=== PATIENT | female | born 1935 | race Caucasian/White ===

== ENCOUNTER → 2018-03-12 09:56 | Outpatient (CLI) | payer MEDICARE, OTHER, SELFPAY ==
--- NOTE | 2018-03-12 | DI.MG.S_ITS ---
BILATERAL DIGITAL SCREENING MAMMOGRAM 3D/2D WITH CAD: 03/12/2018 CLINICAL: Routine screening. Comparison is made to exams dated: 12/24/2016 mammogram - [facility], 12/27/2013 mammogram, and 10/01/2012 mammogram - [facility]. The tissue of both breasts is extremely dense, which lowers the sensitivity of mammography. Current study was also evaluated with a Computer Aided Detection (CAD) system. No significant masses, calcifications, or other findings are seen in either breast. There has been no significant interval change. IMPRESSION: NEGATIVE There is no mammographic evidence of malignancy. A 1 year screening mammogram is recommended. This exam was interpreted at Station ID: [id number]. NOTE: For mammograms, a report in lay terms will be sent to the patient. Approximately 15% of breast malignancies will not be visualized mammographically. In the management of a palpable breast mass, a negative mammogram must not discourage biopsy of a clinically suspicious lesion. Electronically Signed By: Sam victoria/omaira:03/12/2018 11:04:40 letter sent: Normal Exam ACR BI-RADS Category 1: Negative 3341F
== END ==
PROVIDERS: PCP Internal Medicine; Visit Provider Internal Medicine
DX: Z12.31 Encounter for screening mammogram for malignant neoplasm of breast (principal); M81.0 Age-related osteoporosis without current pathological fracture
CPT/HCPCS: 77063; 77067; 77080

== ENCOUNTER → 2019-01-25 14:04 | Outpatient (CLI) | payer MEDICARE, OTHER, SELFPAY ==
--- NOTE | 2019-01-25 | DI.RAD.S_ITS ---
PROCEDURE: XR LUMBAR SPINE 2-3V INDICATIONS: Low back pain TECHNIQUE: A set of 3 views of the lumbar spine were acquired. COMPARISON: [facility], CT, ABDOMEN/PELVIS WITH CONTRAST, 05/23/2017, 11:42. FINDINGS: Bones: 5 col-[id number] vertebrae are present. There is slight levoscoliotic bony alignment. No vertebral body compression fractures. The degenerative disc disease and facet osteoarthritis along the lumbosacral spine is most prominent at L3-4 and L4-5, as was the case during prior CT scanning 05/23/17. Surgical clips again noted medial left upper quadrant. Areas of peripherally calcified centrally lucent rectangular ovoid and rounded radiodensities at the left upper quadrant are again seen, presumably a manifestation of fat necrosis. No suspicious bony lesions. Soft tissues: Overlying bowel gas pattern is normal. No suspicious soft tissue calcifications. IMPRESSION: Degenerative disc disease is unchanged from prior CT scanning 05/23/17 and no acute or subacute compression fracture is found. As noted, the degenerative changes over the middle and lower thirds of the lumbosacral spine are moderate in severity and do not appear to have worsened. If unusual symptomatology persists followup by MR scanning could be obtained. Dictated by: Tramaine Frost M.D. on 01/25/2019 at 15:51 Approved by: Tramaine Frost M.D. on 01/25/2019 at 15:53
== END ==
PROVIDERS: PCP Internal Medicine; Visit Provider Student in an Organized Health Care Education/Training Program
DX: M54.5 Low back pain (principal); M51.36 Other intervertebral disc degeneration, lumbar region; M47.817 Spondylosis without myelopathy or radiculopathy, lumbosacral region
CPT/HCPCS: 72100

== ENCOUNTER → 2019-03-16 10:21 | Outpatient (CLI) | payer MEDICARE, OTHER, SELFPAY ==
--- NOTE | 2019-03-16 | DI.MG.S_ITS ---
BILATERAL DIGITAL SCREENING MAMMOGRAM 3D/2D WITH CAD: 03/16/2019 CLINICAL: Routine screening. Comparison is made to exams dated: 03/12/2018 mammogram, 12/24/2016 mammogram - [facility], and 12/27/2013 mammogram - [facility]. The tissue of both breasts is extremely dense, which lowers the sensitivity of mammography. Current study was also evaluated with a Computer Aided Detection (CAD) system. There are benign calcifications in both breasts. No significant masses, calcifications, or other findings are seen in either breast. There has been no significant interval change. IMPRESSION: There is no mammographic evidence of malignancy. A 1 year screening mammogram is recommended. This exam was interpreted at Station ID: [id number]. NOTE: For mammograms, a report in lay terms will be sent to the patient. Approximately 15% of breast malignancies will not be visualized mammographically. In the management of a palpable breast mass, a negative mammogram must not discourage biopsy of a clinically suspicious lesion. Electronically Signed By: Emmett barraza/omaira:03/16/2019 11:06:32 letter sent: Normal Exam ACR BI-RADS Category 2: Benign Finding(s) 3342F
== END ==
PROVIDERS: PCP Internal Medicine; Visit Provider Internal Medicine
DX: Z12.31 Encounter for screening mammogram for malignant neoplasm of breast (principal)
CPT/HCPCS: 77063; 77067

== ENCOUNTER → 2020-04-20 10:21 | Outpatient (CLI) | payer MEDICARE, OTHER, SELFPAY ==
[2020-04-20 12:04] LABS: Aspartate Aminotransferase 31 IU/L (14-36); BUN Creatinine Ratio 28.4 (6-22); Blood Urea Nitrogen 25 mg/dL (7-17); Calcium 9.7 mg/dL (8.4-10.2); Carbon Dioxide 26 mmol/L (22-32); Chloride 104 mmol/L (98-107); Cholesterol 148 mg/dL (140-199); Estimated Glomerular Filt Rate > 60.0 mL/min (>60); Glucose 103 mg/dL (80-110); HDL Cholesterol 59 mg/dL (40-60); HEMOLYSIS < 15 (0-50); LDL Cholesterol Calculated 57 mg/dL (<100); Potassium 4.8 mmol/L (3.4-5.1); Sodium 138 mmol/L (137-145); Triglycerides 158 mg/dL (35-150)
== END ==
PROVIDERS: PCP Internal Medicine; Referring Provider Internal Medicine; Visit Provider Internal Medicine
DX: I10 Essential (primary) hypertension (principal); E78.2 Mixed hyperlipidemia
CPT/HCPCS: 36415; 80048; 80061; 84450

== ENCOUNTER → 2020-04-27 16:11 | Outpatient (CLI) | payer MEDICARE, OTHER, SELFPAY ==
--- NOTE | 2020-04-27 | DI.MG.S_ITS ---
BILATERAL DIGITAL SCREENING MAMMOGRAM 3D/2D WITH CAD: 04/27/2020 CLINICAL: Routine screening. Comparison is made to exams dated: 03/16/2019 mammogram, 03/12/2018 mammogram, and 12/24/2016 mammogram - [facility]. The tissue of both breasts is extremely dense, which lowers the sensitivity of mammography. Current study was also evaluated with a Computer Aided Detection (CAD) system. There are benign calcifications in both breasts. No significant masses, calcifications, or other findings are seen in either breast. There has been no significant interval change. IMPRESSION: There is no mammographic evidence of malignancy. A 1 year screening mammogram is recommended. This exam was interpreted at Station ID: [id number]. NOTE: For mammograms, a report in lay terms will be sent to the patient. Approximately 15% of breast malignancies will not be visualized mammographically. In the management of a palpable breast mass, a negative mammogram must not discourage biopsy of a clinically suspicious lesion. Electronically Signed By: Emmett barraza/omaira:04/27/2020 17:41:11 letter sent: Normal Exam ACR BI-RADS Category 2: Benign Finding(s) 3342F
== END ==
PROVIDERS: PCP Internal Medicine; Referring Provider Internal Medicine; Visit Provider Internal Medicine
DX: Z12.31 Encounter for screening mammogram for malignant neoplasm of breast (principal)
CPT/HCPCS: 77063; 77067

== ENCOUNTER → 2020-05-02 13:30 | Oncology outpatient (ONC) | payer MEDICARE, OTHER, SELFPAY ==
[2019-02-16] MEDS: ZOLEDRONIC ACID 5 MG in SODIUM CHLORIDE 0.9% 100 ML 318.75 ML IV (15:11)
[2019-02-16 15:24] VITALS: BP 113/56; PULSE 67; RESP 16; TEMP 36.5; O2SAT 95
[2020-05-02 13:48] VITALS: BP 132/67; PULSE 60; RESP 16; TEMP 36.7; O2SAT 96
[2020-05-02] MEDS: ZOLEDRONIC ACID 5 MG in SODIUM CHLORIDE 0.9% 100 ML 318.75 ML IV (13:52)
== END ==
PROVIDERS: PCP Internal Medicine; Visit Provider Internal Medicine
DX: M81.0 Age-related osteoporosis without current pathological fracture (principal)
CPT/HCPCS: 96365; 96374; J3489

== ENCOUNTER → 2020-05-13 09:10 | Outpatient (CLI) | payer MEDICARE, OTHER, SELFPAY | PROVIDERS: PCP Internal Medicine; Visit Provider Physician Assistant | DX: R30.0 Dysuria (principal) | CPT/HCPCS: 87086 ==

== ENCOUNTER → 2021-05-08 12:35 | Outpatient (CLI) | payer MEDICARE, OTHER, SELFPAY ==
--- NOTE | 2021-05-08 | DI.MG.S_ITS ---
BILATERAL DIGITAL SCREENING MAMMOGRAM 3D/2D WITH CAD: 05/08/2021 CLINICAL: Routine screening. Comparison is made to exams dated: 04/27/2020 mammogram, 03/16/2019 mammogram, and 03/12/2018 mammogram - [facility]. The tissue of both breasts is extremely dense, which lowers the sensitivity of mammography. Current study was also evaluated with a Computer Aided Detection (CAD) system. There are benign calcifications in both breasts. There also are benign vascular calcifications in both breasts. Additionally, there are benign post operative findings in the left breast. No significant masses, calcifications, or other findings are seen in either breast. There has been no significant interval change. IMPRESSION: BENIGN There is no mammographic evidence of malignancy. A 1 year screening mammogram is recommended. This exam was interpreted at Station ID: [id number]. NOTE: For mammograms, a report in lay terms will be sent to the patient. Approximately 15% of breast malignancies will not be visualized mammographically. In the management of a palpable breast mass, a negative mammogram must not discourage biopsy of a clinically suspicious lesion. Electronically Signed By: Nusrat marina/omaira:05/08/2021 14:13:29 letter sent: Normal Exam ACR BI-RADS Category 2: Benign Finding(s) 3342F
[2021-05-08 13:44] LABS: Hematocrit 36.7 % (36-46); Hemoglobin 12.1 g/dL (12.0-16.0); Mean Corpuscular HGB Conc 32.9 % (30-36); Mean Corpuscular Volume 91.1 fL (80-100); Platelet Count 191 X10^3/uL (150-400); Red Blood Cell Count 4.03 X10^6/uL (4.0-5.2); Red Cell Distribution Width 14.1 % (11.6-14.8); White Blood Cell Count 6.2 X10^3/uL (4.5-11.0)
[2021-05-08 14:12] LABS: Alanine Aminotransferase 24 IU/L (<35); Albumin Globulin Ratio 1.4 (1.0-2.8); Alkaline Phosphatase 47 U/L (38-126); Aspartate Aminotransferase 33 IU/L (14-36); Bilirubin Total 0.4 mg/dL (0.2-1.3); Blood Urea Nitrogen 27 mg/dL (7-17); Calcium 9.8 mg/dL (8.4-10.2); Carbon Dioxide 27 mmol/L (22-32); Chloride 105 mmol/L (98-107); Cholesterol 152 mg/dL (140-199); Estimated Glomerular Filt Rate 50.5 mL/min (>60); Globulin 2.8 g/dL (1.7-4.1); Glucose 97 mg/dL (80-110); HDL Cholesterol 66 mg/dL (40-60); HEMOLYSIS < 15 (0-50); LDL Cholesterol Calculated 70 mg/dL (<100); Potassium 4.7 mmol/L (3.4-5.1); Sodium 138 mmol/L (137-145); Total Protein 6.8 g/dL (6.3-8.2); Triglycerides 80 mg/dL (35-150)
[2021-05-08 14:17] LABS: Hemoglobin A1C% w Est Avg Glu 5.6 % (4.0-6.0)
[2021-05-08 14:41] LABS: TSH w/ Reflex to FT4 0.15 uIU/mL (0.47-4.68)
[2021-05-08 14:58] LABS: Vitamin B12 466 pg/mL (239-931)
[2021-05-08 16:27] LABS: Free T4, Direct Thyroxine 1.01 ng/dL (0.78-2.19)
[2021-05-10 14:17] LABS: Albumin 3.7 g/dL (2.9-4.4); Alpha-1-Globulin 0.2 g/dL (0.0-0.4); Alpha-2-Globulin 0.6 g/dL (0.4-1.0); Gamma Globulin 0.9 g/dL (0.4-1.8); Globulin Total 2.6 g/dL (2.2-3.9); Protein, Total 6.3 g/dL (6.0-8.5)
== END ==
PROVIDERS: PCP Internal Medicine; Referring Provider Internal Medicine; Visit Provider Internal Medicine
DX: Z12.31 Encounter for screening mammogram for malignant neoplasm of breast (principal); E78.2 Mixed hyperlipidemia; R73.01 Impaired fasting glucose; I25.10 Atherosclerotic heart disease of native coronary artery without angina pectoris; E53.8 Deficiency of other specified B group vitamins; R77.8 Other specified abnormalities of plasma proteins
CPT/HCPCS: 36415; 77063; 77067; 80053; 80061; 82607; 83036; 84155; 84165; 84439; 84443; 85027

== ENCOUNTER → 2021-05-10 11:08 | Outpatient (CLI) | payer MEDICARE, OTHER, SELFPAY | PROVIDERS: PCP Internal Medicine; Referring Provider Internal Medicine; Visit Provider Internal Medicine | DX: M85.852 Other specified disorders of bone density and structure, left thigh (principal); Z78.0 Asymptomatic menopausal state | CPT/HCPCS: 77080 ==

== ENCOUNTER → 2021-08-01 08:54 | Outpatient (CLI) | payer MEDICARE, OTHER, SELFPAY ==
--- NOTE | 2021-08-01 08:57 | DI.US.S_ITS ---
PROCEDURE: US AORTA LIMITED INDICATIONS: PAD R/O AAA TECHNIQUE: Real time scanning was performed of the aorta and iliac arteries, with image documentation. COMPARISON: None. FINDINGS: Aorta: Proximal aortic diameter measures 1.4 x 1.6 cm. Mid-aorta measures 1.5 x 1.5 cm. Distal aortic diameter is 1.4 x 1.5 cm. Iliac arteries: Right common iliac artery measures 0.8 x 1.0 cm. Left common iliac artery measures 1.0 x 1.1 cm. IMPRESSION: No aneurysmal dilation. Dictated by: Carin Wetzel M.D. on 08/01/2021 at 15:34 Approved by: Carin Wetzel M.D. on 08/01/2021 at 15:35
--- NOTE | 2021-08-01 08:57 | DI.ECHO.S_ITS ---
[place] [facility]---------+ [facility] +---------+ : : [address] : : : : [id number] : : : : Phone: [phone]+ Echocardiogram Report + + :Name: ESTEBAN ENGLISH Study Date: 08/01/2021 Height: 63 in : :[facility] ReadingLocation: Weight: 125 lb : : Gender: Female BSA: 1.6 m2 : :: 1935 Age: 86 yrs BP: 150/80 mmHg: :Reason For Study: Atherosclerotic heart disease : : Performed By: KINGSTON IGLESIAS : :Referring: AIMEE MENSHA : + + Interpretation Summary Left ventricular systolic function is normal with an estimated ejection fraction of 55 to 60% without any focal wall motion abnormality. Left ventricular size and wall thickness are normal with a probable diastolic relaxation abnormality but probable normal filling pressures. The right ventricle appears normal in size and systolic function. Right ventricular systolic pressure is estimated to be at least 32 mmHg with a CVP of around 3 mmHg. There is moderate right atrial enlargement. There is mild to moderate mitral and mild to moderate pulmonic valve regurgitation. There is moderate tricuspid regurgitation. The aortic valve is slightly sclerotic with mild aortic insufficiency. Procedure: A two-dimensional transthoracic echocardiogram with color flow and Doppler was performed. The study quality was technically adequate. There is no prior echocardiogram noted for this patient. The patient was in normal sinus rhythm during the exam. Left Ventricle: The left ventricle is normal in size and wall thickness. There is mild proximal septal thickening noted. Left ventricular systolic function appears normal without focal wall motion abnormalities. The ejection fraction is estimated to be 55-60%. Diastolic parameters suggest a relaxation abnormality of the left ventricle, consistent with probable normal filling pressures. Right Ventricle: The right ventricle is normal in size and function. Atria: The left atrial size is normal. The right atrium is moderately dilated. Chiari network (normal variant) is noted. The interatrial septum grossly appears intact with no obvious evidence for an atrial septal defect. There is no Doppler evidence for an atrial septal defect. Mitral Valve: The mitral valve leaflets appear borderline thickened, but open well. There is mild to moderate mitral regurgitation. Aortic Valve: The aortic valve is trileaflet. The aortic valve is mildly calcified. The aortic valve opens well. There is mild aortic regurgitation. Tricuspid Valve: The tricuspid valve is normal. There is moderate tricuspid regurgitation. The right ventricular systolic pressure is estimated to be at least 32 mmHg based on an estimated right atrial pressure of 3 mm Hg. Pulmonic Valve: The pulmonic valve leaflets are thin and pliable; valve motion is normal. There is mild to moderate pulmonic regurgitation. Great Vessels: The aortic root is normal size. The ascending aorta is normal in size. The aortic arch is normal in size. The IVC is of normal diameter and collapses greater than 50% with a sniff. This suggests a low right atrial pressure of 3 mm Hg. Pericardium/ Pleura There is no pericardial effusion. There is no pleural effusion. MMode/2D Measurements & Calculations LVIDd: 3.9 cm LVOT diam: 1.8 cm LVIDs: 2.9 cm Ao root diam: 3.3 cm FS: 25.0 % asc Aorta Diam: 2.9 cm IVSd: 0.97 cm Ao Arch Diam (Prox Trans): 2.9 cm LVPWd: 0.70 cm LV burgess. diameter/BSA (cm/m^2): 2.5 LV sys. diameter/BSA (cm/m^2): 1.8 LA A2 area: 13.8 cm2 RA long axis: 5.1 cm LA A4 area: 12.6 cm2 RA area: 19.2 cm2 LA length (vol): 4.0 cm RA vol: 60.9 ml LA vol: 36.8 ml RA : 38.5 ml/m2 LA vol index: 23.2 ml/m2 IVC diam: 1.4 cm RVD1 (basal): 3.4 cm TAPSE: 2.6 cm Doppler Measurements & Calculations Ao V2 max: 115.0 cm/sec LVOT Max Real: 80.7 cm/sec Ao V2 mean: 81.3 cm/sec LV V1 max P.6 mmHg Ao max P.3 mmHg LV V1 VTI: 18.1 cm Ao mean P.9 mmHg NARESH(I,D): 1.8 cm2 Ao V2 VTI: 26.7 cm NARESH(V,D): 1.9 cm2 sev ratio: 0.68 NARESH indexed to BSA (cm^2/m^2): 1.1 MV E max real: 64.8 cm/sec TR max real: 270.6 cm/sec MV A max real: 87.6 cm/sec TR max P.3 mmHg MV E/A: 0.74 PA V2 max: 55.7 cm/sec Med Peak E' Real: 3.3 cm/sec PA V2 mean: 45.7 cm/sec E/E' med: 19.8 PA mean P.87 mmHg Lat Peak E' Real: 4.4 cm/sec PA pr(Accel): 31.0 mmHg E/E' lat: 14.9 E/e' average: 17.3 MV dec time: 0.16 sec SV(LVOT): 47.6 ml Reading Physician:04:56 PM
[2021-08-01 09:49] LABS: COVID19 -Nasal RAPID Negative (Negative)
--- NOTE | 2021-08-01 19:39 | DI.NM.S_ITS ---
DATE OF SERVICE: 07/31/2021 PROCEDURE PERFORMED: Exercise perfusion study. INDICATIONS: Shoulder pain, arm pain, chest pain ,known history of complex CAD with history of LAD and diagonal intervention in the past. RADIOPHARMACEUTICAL: 27.0 millicurie technetium-99m Myoview IV was injected at stress and 25.6 millicurie technetium-99m Myoview IV was injected at rest. CARDIAC STRESS: The patient underwent exercise perfusion study under the supervision of an attending staff. The patient walked on Eric protocol for 5 minutes and 02 seconds, achieved 106 percent of target heart rate with normal hemodynamic response. ROLANDO -17 percent, achieved 7 METs of workload. Baseline EKG revealed sinus rhythm with first-degree AV block with some nonspecific repolarization changes. During exercise stress test, there was nonspecific upsloping ST depression in inferolateral leads without any convincing ischemic changes. The patient developed intermittent PACs and PVCs without any ventricular tachycardia or AFib. No chest pain. However, felt dyspnea, as well as had bilateral shoulder ache, which was on a scale of 1 to 10, 5 in intensity at peak exercise and got resolved in recovery. RAW DATA: Breast shadow was seen. GATED STUDY: On gated study, resting LV ejection fraction 80 percent and stress LV ejection fraction 81 percent. Resting end-diastolic volume 55 mL. TID ratio 1.13, which is within normal limits. Lung/heart ratio 0.31, which is within normal limits. PERFUSION STUDY: Stress supine, resting supine and stress prone images were compared to each other. Resting supine images revealed small size, minimally decreased perfusion of distal anterior septum. Stress supine images revealed a small size, moderate to severely decreased perfusion of distal anterior wall extending into the anterior apex, which got significantly improved during stress prone images. The stress prone images remaining have minimally decreased perfusion of distal anterior septum. No obvious significant reversible ischemia. CONCLUSIONS: 1. No obvious reversible ischemia. 2. Predominantly fixed minimally decreased perfusion of distal anterior septum. The distal left anterior descending defect which was seen on stress supine images got resolved during stress prone images. Anterior apical defect also got resolved during stress prone images, likely due to breast tissue attenuation artifact. Decent exercise capacity. The patient is 86 years old. ROLANDO -17 percent. Normal hemodynamic response. No convincing ischemic changes or complex arrhythmias, other than intermittent premature ventricular contractions and premature atrial contractions. However, at peak exercise, the patient had bilateral shoulder pain, which got resolved in recovery. Could be angina equivalent. Correlate clinically, and if her symptoms do not get better with maximum anginal treatment, reasonable to consider left heart catheterization. Emmanuelle Apodaca - ELENA/kevin/kavitha doc#: [id number]/job#: [id number] dd: 08/01/2021 17:01:00 dt: 08/01/2021 19:00:00 DICTATING /COPIES TO: Paty Valera MD COPIES MNE: BRIAN;
== END ==
PROVIDERS: PCP Internal Medicine; Referring Provider Internal Medicine Cardiovascular Disease; Visit Provider Internal Medicine Cardiovascular Disease
DX: R06.02 Shortness of breath (principal); I73.9 Peripheral vascular disease, unspecified; I25.118 Atherosclerotic heart disease of native coronary artery with other forms of angina pectoris; Z20.822 Contact with and (suspected) exposure to COVID-19; M25.519 Pain in unspecified shoulder; M79.609 Pain in unspecified limb
CPT/HCPCS: 78452; 87635; 93017; 93306; 93979; A9502

== ENCOUNTER → 2022-05-13 11:06 | Outpatient (CLI) | payer MEDICARE, OTHER, SELFPAY ==
--- NOTE | 2022-05-13 | DI.MG.S_ITS ---
BILATERAL DIGITAL SCREENING MAMMOGRAM 3D/2D WITH CAD: 05/13/2022 CLINICAL: Routine screening. Comparison is made to exams dated: 05/08/2021 mammogram, 04/27/2020 mammogram, 03/16/2019 mammogram, and 03/12/2018 mammogram - [facility]. The tissue of both breasts is extremely dense, which lowers the sensitivity of mammography. Current study was also evaluated with a Computer Aided Detection (CAD) system. There are benign calcifications in both breasts. There also are benign vascular calcifications in both breasts. Additionally, there are benign post operative findings in the left breast. No significant masses, calcifications, or other findings are seen in either breast. There has been no significant interval change. IMPRESSION: BENIGN There is no mammographic evidence of malignancy. A 1 year screening mammogram is recommended. Based on the Tyrer Cuzick model (a risk assessment model) the patient's lifetime risk is % and her 10 year risk is %. According to the ACR, ACS, and NCCN guidelines, an annual breast MRI exam along with mammogram is recommended if the patient's lifetime risk is 20% or greater. This exam was interpreted at Station ID: [id number]. NOTE: For mammograms, a report in lay terms will be sent to the patient. Approximately 15% of breast malignancies will not be visualized mammographically. In the management of a palpable breast mass, a negative mammogram must not discourage biopsy of a clinically suspicious lesion. Electronically Signed By: Emanuel coyle/omaira:05/13/2022 12:59:39 letter sent: Normal Exam ACR BI-RADS Category 2: Benign Finding(s) 3342F
== END ==
PROVIDERS: PCP Internal Medicine; Referring Provider Internal Medicine; Visit Provider Internal Medicine
DX: Z12.31 Encounter for screening mammogram for malignant neoplasm of breast (principal)
CPT/HCPCS: 77063; 77067

== ENCOUNTER → 2022-05-17 08:59 | Outpatient (CLI) | payer MEDICARE, OTHER, SELFPAY ==
[2022-05-17 09:58] LABS: Blood Urea Nitrogen 22 mg/dL (7-17); Calcium 9.1 mg/dL (8.4-10.2); Carbon Dioxide 31 mmol/L (22-32); Chloride 102 mmol/L (98-107); Estimated Glomerular Filt Rate 55 mL/min (>60); Glucose 96 mg/dL (80-110); HEMOLYSIS < 15 (0-50); Potassium 4.1 mmol/L (3.4-5.1); Sodium 138 mmol/L (137-145)
== END ==
PROVIDERS: PCP Internal Medicine; Referring Provider Internal Medicine Cardiovascular Disease; Visit Provider Internal Medicine Cardiovascular Disease
DX: R06.02 Shortness of breath (principal)
CPT/HCPCS: 36415; 80048

== ENCOUNTER → 2022-06-07 15:14 | Outpatient (CLI) | payer MEDICARE, OTHER, SELFPAY ==
[2022-06-07 16:09] LABS: Hematocrit 34.8 % (36-46); Hemoglobin 11.8 g/dL (12.0-16.0); Mean Corpuscular Volume 88.2 fL (80-100); Platelet Count 200 X10^3/uL (150-400); Red Blood Cell Count 3.94 X10^6/uL (4.0-5.2); Red Cell Distribution Width 13.9 % (11.6-14.8); White Blood Cell Count 6.5 X10^3/uL (4.5-11.0)
[2022-06-07 16:43] LABS: Alanine Aminotransferase 26 IU/L (<35); Albumin Globulin Ratio 1.5 (1.0-2.8); Alkaline Phosphatase 56 U/L (38-126); Aspartate Aminotransferase 32 IU/L (14-36); BUN Creatinine Ratio 31.5 (6-22); Bilirubin Total 0.5 mg/dL (0.2-1.3); Blood Urea Nitrogen 29 mg/dL (7-17); Calcium 9.5 mg/dL (8.4-10.2); Carbon Dioxide 32 mmol/L (22-32); Chloride 101 mmol/L (98-107); Cholesterol 146 mg/dL (140-199); Estimated Glomerular Filt Rate > 60 mL/min (>60); Globulin 2.6 g/dL (1.7-4.1); Glucose 91 mg/dL (80-110); HDL Cholesterol 66 mg/dL (40-60); HEMOLYSIS < 15 (0-50); LDL Cholesterol Calculated 51 mg/dL (<100); Sodium 139 mmol/L (137-145); Total Protein 6.6 g/dL (6.3-8.2); Triglycerides 146 mg/dL (35-150)
== END ==
PROVIDERS: PCP Internal Medicine; Referring Provider Internal Medicine; Visit Provider Internal Medicine
DX: E78.2 Mixed hyperlipidemia (principal); I10 Essential (primary) hypertension; I25.118 Atherosclerotic heart disease of native coronary artery with other forms of angina pectoris
CPT/HCPCS: 36415; 80053; 80061; 84443; 85027

== ENCOUNTER 2022-06-18 08:15 | Outpatient (RCR) | payer MEDICARE, OTHER, SELFPAY ==
--- NOTE | 2022-06-14 15:59 | PT.OIE ---
Current Diagnoses Benign paroxysmal vertigo, bilateral (06/14/22) Dizziness and giddiness (06/14/22) History of falling (06/14/22) Past Medical History (Last Updated 06/07/22 @ 14:48 by Manjit Pruett MD) Benign paroxysmal vertigo, bilateral Cataracts, bilateral Colon polyps Coronary artery disease Diplopia Do not resuscitate Essential hypertension Fracture of ulnar styloid Hearing loss Left carotid artery occlusion (~2007) Medicare annual wellness visit, initial Mixed hyperlipidemia Osteopenia Osteoporosis (~2014) Peripheral neuropathy Radial fracture Stroke (~2007) Past Surgical History (Last Reviewed 06/07/22 @ 12:45 by Manjit Pruett MD) Anesthesia 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, splenic artery (~1991) History of ankle surgery (~10/09/00) History of cardiac catheterization (~04/19/10) History of colonoscopy (~1990) History of coronary artery stent placement (~01/20/09) History of dilatation and curettage History of heart attack (~05/08/09) History of hysterectomy (~1965) History of left breast biopsy (~1959) History of neck surgery (~1961) History of shoulder surgery (~02/25/07) History of surgery on wrist (~03/27/16) Visit Care Team Role Provider Type Manjit Pruett MD Attending Provider Physician Family Provider Primary Care Provider Referring Provider Specialty: Internal Medicine Address: [address] [place] [address], [facility] Email: [email or web address] Therapy Initial Evaluation PT-OP-A Visit Information Start: 06/12/22 15:30 Freq: Status: Active Protocol: Document 06/14/22 10:27 AMB (Rec: 06/14/22 11:24 AMB [id number]) Out-Patient Physical Therapy Visit Information Visit Information Visit Type Initial Evaluation Visit Start Time 10:30 Visit Stop Time 11:15 Total Visit Minutes 45 Visit Number 1 PT-OP-B Current Condition Start: 06/12/22 15:30 Freq: Status: Active Protocol: Document 06/14/22 10:27 AMB (Rec: 06/14/22 11:24 AMB [id number]) Current Condition History of Current Condition Onset Date 9 months ago Current Complaints balance deficits History of Current Condition 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 Some neuropathy. Concerned about driving. [address] Canela and he said it was is is. More veering to the right. Had a TIA in 2014 TPA denies significant sx since then. Had 5 stents placed in and a mild FL at that time. Does ambulate with SPC. Treatment Goals Patient/Caregiver Goals Improve balance Prior Functional Status Baseline Function- ADL's Modified Independent Baseline Function- Mobility Modified Independent Personal Factors Other Personal Factors That May Effect neuropathy, double vision Therapy/Recovery baseline but does have prisms, lost L ear function 60 years ago. PT-OP-C Subjective Start: 06/12/22 15:30 Freq: Status: Active Protocol: Document 06/14/22 12:48 AMB (Rec: 06/14/22 12:52 AMB [id number]) Patient Questionnaires Dizziness Handicap Inventory DHI Score 50 DHI Functional Impairment 40 to 59% Impaired (Score 40- 59) PT-OP-O Vestibular Start: 06/12/22 15:30 Freq: Status: Active Protocol: Document 06/14/22 10:30 AMB (Rec: 06/17/22 10:54 AMB [id number]) Vestibular Assessment Screening Tests Vestibular Artery Screen Negative Visual Testing DVA (Line Degradation) 11 Positional Testing Kayla-Hallpike Negative Left,Negative Right Rolling Test Negative Left,Negative Right Comments Vestibular Comments Pt with difficulty with DVA even with prism glasses on, unable. PT-OP-T Assessment and Plan Start: 06/12/22 15:30 Freq: Status: Active Protocol: Document 06/14/22 10:30 AMB (Rec: 06/17/22 15:58 AMB [id number]) Physical Therapy Assessment Rehab Potential Rehabilitation Potential Fair Evaluation Complexity Number of Personal Factors/Comorbidities 3 or More Number of Body Systems Impaired 4 or More Clinical Presentation at Evaluation Evolving Impairments Impairments Balance,Functional Activities, Gait,Sensation,Vestibular Other Concerns Fall Risk yes Goals Two Impairment HEP Short Term Goal (STG) Emmanuelle will be independent with a HEP for her balance. STG Duration 4 weeks One Impairment Sit to stand Short Term Goal (STG) Emmanuelle will move from sit to stand without dizziness/ imbalance. STG Duration 4 weeks Assessment Summary Assessment Emmanuelle attends physical therapy for increasing imbalance, especially with sit to stand and the first few steps of walking after standing. She tested negative for BPPV. She has had a previous bout of physical therapy that focused on LE strengthening and gait which she has not kept up with and did not feel was especially helpful. 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 Considering her peripheral neuropathy, diplopia and vestibulochoclear loss, her functional balance and ambulation is actually quite impressive. She may benefit from further physical therapy focusing on vestibular/ functional movement, but considering her previous PT within the last year we will discuss pt outcomes/goals since her BPPV screening was negative. Physical Therapy Plan Frequency and Duration Frequency of Treatment 2x/Week Duration of Treatment 4 weeks Plan of Care Start Date 06/14/22 Plan of Care End Date 07/12/22 Therapeutic Interventions Therapeutic Interventions Balance Training,Gait Training ,Home Exercise Program,Self- Care/Home Management, Therapeutic Activities, Therapeutic Exercises, Vestibular Rehabilitation Next Visit Focus/Plan Next Note Type Treatment Note Next Visit Plan Follow up on saccades HEP, consider DGI vs morillo
--- NOTE | 2022-06-14 16:00 | PT.OPPOC ---
Physical, Occupational & Speech Therapy At [facility] Current Diagnoses Benign paroxysmal vertigo, bilateral (06/14/22) Dizziness and giddiness (06/14/22) History of falling (06/14/22) Visit Care Team Role Provider Type Manjit Pruett MD Attending Provider Physician Family Provider Primary Care Provider Referring Provider Specialty: Internal Medicine Address: [address] [place] [address], [facility] Email: [email or web address] Plan Of Care PT-OP-T Assessment and Plan Start: 06/12/22 15:30 Freq: Status: Active Protocol: Document 06/14/22 10:30 AMB (Rec: 06/17/22 15:58 AMB [id number]) Physical Therapy Assessment Rehab Potential Rehabilitation Potential Fair Evaluation Complexity Number of Personal Factors/Comorbidities 3 or More Number of Body Systems Impaired 4 or More Clinical Presentation at Evaluation Evolving Impairments Impairments Balance,Functional Activities, Gait,Sensation,Vestibular Other Concerns Fall Risk yes Goals Two Impairment HEP Short Term Goal (STG) Emmanuelle will be independent with a HEP for her balance. STG Duration 4 weeks One Impairment Sit to stand Short Term Goal (STG) Emmanuelle will move from sit to stand without dizziness/ imbalance. STG Duration 4 weeks Assessment Summary Assessment Emmanuelle attends physical therapy for increasing imbalance, especially with sit to stand and the first few steps of walking after standing. She tested negative for BPPV. She has had a previous bout of physical therapy that focused on LE strengthening and gait which she has not kept up with and did not feel was especially helpful. 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 Considering her peripheral neuropathy, diplopia and vestibulochoclear loss, her functional balance and ambulation is actually quite impressive. She may benefit from further physical therapy focusing on vestibular/ functional movement, but considering her previous PT within the last year we will discuss pt outcomes/goals since her BPPV screening was negative. Physical Therapy Plan Frequency and Duration Frequency of Treatment 2x/Week Duration of Treatment 4 weeks Plan of Care Start Date 06/14/22 Plan of Care End Date 07/12/22 Therapeutic Interventions Therapeutic Interventions Balance Training,Gait Training ,Home Exercise Program,Self- Care/Home Management, Therapeutic Activities, Therapeutic Exercises, Vestibular Rehabilitation Next Visit Focus/Plan Next Note Type Treatment Note Next Visit Plan Follow up on saccades HEP, consider DGI vs morillo Plan of Care Dates Plan of Care Start Date 06/14/22 Plan of Care End Date 07/12/22 Electronically Signed by: Tiana Martines, PT 06/17/22 1600 If you are in agreement with this Plan of Care, please return a signed and dated copy. I have reviewed this Plan of Care and certify that the skilled therapy services above are required to meet the patient?s needs. Physician Signature Date Printed Name and Credentials Clinical Instructor Signature Printed Name and Credentials
--- NOTE | 2022-06-18 09:48 | PT.OTN ---
Current Diagnoses Benign paroxysmal vertigo, bilateral (06/18/22) Dizziness and giddiness (06/18/22) History of falling (06/18/22) Physical Therapy Treatment Note PT-OP-A Visit Information Start: 06/12/22 15:30 Freq: Status: Active Protocol: Document 06/18/22 09:31 AMB (Rec: 06/18/22 09:48 AMB [id number]) Out-Patient Physical Therapy Visit Information Visit Information Visit Type Treatment Note Visit Start Time 08:15 Visit Stop Time 09:00 Total Visit Minutes 45 Visit Number 2 PT-OP-B Current Condition Start: 06/12/22 15:30 Freq: Status: Active Protocol: Document 06/14/22 10:27 AMB (Rec: 06/14/22 11:24 AMB [id number]) Current Condition History of Current Condition Onset Date 9 months ago Current Complaints balance deficits History of Current Condition 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 Some neuropathy. Concerned about driving. [address] Canela and he said it was is is. More veering to the right. Had a TIA in 2014 TPA denies significant sx since then. Had 5 stents placed in and a mild CT at that time. Does ambulate with SPC. Treatment Goals Patient/Caregiver Goals Improve balance Prior Functional Status Baseline Function- ADL's Modified Independent Baseline Function- Mobility Modified Independent Personal Factors Other Personal Factors That May Effect neuropathy, double vision Therapy/Recovery baseline but does have prisms, lost L ear function 60 years ago. PT-OP-C Subjective Start: 06/12/22 15:30 Freq: Status: Active Protocol: Document 06/18/22 09:31 AMB (Rec: 06/18/22 09:48 AMB [id number]) OP-PT Subjective Patient Comments Patient Comments Emmanuelle does not use her walking stick in her home. she is concerned about falling due to her dying of a fall. Saccades exercise just caused double vision no matter how small the head movement. PT-OP-O Vestibular Start: 06/12/22 15:30 Freq: Status: Active Protocol: Document 06/14/22 10:30 AMB (Rec: 06/17/22 10:54 AMB [id number]) Vestibular Assessment Screening Tests Vestibular Artery Screen Negative Visual Testing DVA (Line Degradation) 11 Positional Testing Davis-Hallpike Negative Left,Negative Right Rolling Test Negative Left,Negative Right Comments Vestibular Comments Pt with difficulty with DVA even with prism glasses on, unable. PT-OP-Q Treatments Start: 06/12/22 15:30 Freq: Status: Active Protocol: Document 06/18/22 09:31 AMB (Rec: 06/18/22 09:48 AMB [id number]) Therapeutic Exercises Sitting Exercises ankle circumduction Reps/Minutes 10 ea Standing Exercises heel toe raise Reps/Minutes 10 Neuro Re-Education Treatment Balance Activities 2 Details foam balance NBOS Comments HT- very slow, loses balance with looking up 1 Details modified tandem Comments at kitchen counter Other Activities walking with head turns Details slow PT-OP-T Assessment and Plan Start: 06/12/22 15:30 Freq: Status: Active Protocol: Document 06/18/22 09:31 AMB (Rec: 06/18/22 09:48 AMB [id number]) Physical Therapy Assessment Goals Two Impairment HEP Short Term Goal (STG) Emmanuelle will be independent with a HEP for her balance. STG Duration 4 weeks One Impairment Sit to stand Short Term Goal (STG) Emmanuelle will move from sit to stand without dizziness/ imbalance. STG Duration 4 weeks Assessment Summary Assessment Emmanuelle was able to tolerate strengthening and balance exercises well. Could consider Herrmann Balance test at next visit to encourage AD use in the home. Would recommend community based exercise program for her and discussed senior center. Physical Therapy Plan Next Visit Focus/Plan Next Visit Plan Consider Montez, follow up on heel/toe raise and modified tandem balance.
--- NOTE | 2022-06-28 13:08 | PT.OPDS ---
Current Diagnoses Benign paroxysmal vertigo, bilateral (06/18/22) Dizziness and giddiness (06/18/22) History of falling (06/18/22) Visit Care Team Role Provider Type Manjit Pruett MD Attending Provider Physician Family Provider Primary Care Provider Referring Provider Specialty: Internal Medicine Address: [address] [place] [address], [id number] Email: [email or web address] Visit Number Visit Number 2 Discharge Summary PT-OP-B Current Condition Start: 06/12/22 15:30 Freq: Status: Active Protocol: Document 06/14/22 10:27 AMB (Rec: 06/14/22 11:24 AMB [id number]) Current Condition History of Current Condition Onset Date 9 months ago Current Complaints balance deficits History of Current Condition 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 Some neuropathy. Concerned about driving. [address] Canela and he said it was is is. More veering to the right. Had a TIA in 2014 TPA denies significant sx since then. Had 5 stents placed in and a mild CA at that time. Does ambulate with SPC. Treatment Goals Patient/Caregiver Goals Improve balance Prior Functional Status Baseline Function- ADL's Modified Independent Baseline Function- Mobility Modified Independent Personal Factors Other Personal Factors That May Effect neuropathy, double vision Therapy/Recovery baseline but does have prisms, lost L ear function 60 years ago. PT-OP-C Subjective Start: 06/12/22 15:30 Freq: Status: Active Protocol: Document 06/18/22 09:31 AMB (Rec: 06/18/22 09:48 AMB [id number]) OP-PT Subjective Patient Comments Patient Comments Emmanuelle does not use her walking stick in her home. she is concerned about falling due to her dying of a fall. Saccades exercise just caused double vision no matter how small the head movement. PT-OP-O Vestibular Start: 06/12/22 15:30 Freq: Status: Active Protocol: Document 06/14/22 10:30 AMB (Rec: 06/17/22 10:54 AMB [id number]) Vestibular Assessment Screening Tests Vestibular Artery Screen Negative Visual Testing DVA (Line Degradation) 11 Positional Testing Kayla-Hallpike Negative Left,Negative Right Rolling Test Negative Left,Negative Right Comments Vestibular Comments Pt with difficulty with DVA even with prism glasses on, unable. PT-OP-T Assessment and Plan Start: 06/12/22 15:30 Freq: Status: Active Protocol: Document 06/28/22 13:07 AMB (Rec: 06/28/22 13:08 AMB [id number]) Physical Therapy Assessment Goals Two Impairment HEP Short Term Goal (STG) Emmanuelle will be independent with a HEP for her balance. STG Duration 4 weeks One Impairment Sit to stand Short Term Goal (STG) Emmanuelle will move from sit to stand without dizziness/ imbalance. STG Duration 4 weeks Physical Therapy Plan Discharge Physical Therapy Discharge Comments Pt canceled her last scheduled PT appt. Given that she tested negative for BPPV and had had a previous bout of physica ltherapy for her balance, she would like to exercise in the community at this time, she is therefore discharged from PT after 2 visits.
== END 2022-07-03 12:38 ==
LOC: PHYS 08:15
PROVIDERS: Family Provider Internal Medicine; PCP Internal Medicine; Referring Provider Internal Medicine; Visit Provider Internal Medicine
DX: H81.13 Benign paroxysmal vertigo, bilateral (principal); Z91.81 History of falling
CPT/HCPCS: 97110; 97112; 97162

== ENCOUNTER → 2023-03-21 06:52 | Outpatient (CLI) | payer MEDICARE, OTHER, SELFPAY ==
--- NOTE | 2023-03-21 | DI.ECHO.S_ITS ---
[facility] +---------+ : : [address] : [place] : : : : [id number] : : : : Phone: [phone]---------+ Echocardiogram Report + + :Name: ESTEBAN ENGLISH Study Date: 03/21/2023 Height: 63 in : :[facility] ReadingLocation: Weight: 130 lb : : Gender: Female BSA: 1.6 m2 : :: 1935 Age: 87 yrs BP: 149/69 mmHg: :Reason For Study: Shortness of Breath : :Ordering Physician: Melita, : :Lulu Performed By: Janna Bright : :Referring: LULU HUA E : + + Interpretation Summary The ejection fraction is estimated to be 55-60%. Grade II diastolic dysfunction. The left atrium is mildly dilated. The right ventricle is normal in size and function. The right atrium is moderately dilated. There is mild aortic regurgitation. There is moderate tricuspid regurgitation. The right ventricular systolic pressure is estimated to be at least 41 mmHg based on an estimated right atrial pressure of 3 mm Hg. Compared to the prior study dated 08/01/2021, diastolic function has progressed from grade I to grade II. Procedure: A two-dimensional transthoracic echocardiogram with color flow and Doppler was performed. The study quality was technically adequate. Comparison is made with the echocardiogram of 08/01/2021. The patient was in normal sinus rhythm during the exam. Left Ventricle: The left ventricle is normal in size. The ejection fraction is estimated to be 55-60%. Diastolic parameters suggest a pseudonormalization pattern, consistent with probable elevated filling pressures. Right Ventricle: The right ventricle is normal in size and function. Atria: The left atrium is mildly dilated. The right atrium is moderately dilated. There is no Doppler evidence for an interatrial shunt. The atrial septum is aneurysmal. Mitral Valve: The mitral valve leaflets appear mildly thickened, but open well. There is no mitral valve stenosis. There is trace mitral regurgitation. Aortic Valve: The aortic valve is trileaflet. The aortic valve opens well. There is moderate aortic valve sclerosis. There is no aortic valve stenosis. There is mild aortic regurgitation. Tricuspid Valve: The tricuspid valve is normal. There is no tricuspid stenosis. There is moderate tricuspid regurgitation. The right ventricular systolic pressure is estimated to be at least 41 mmHg based on an estimated right atrial pressure of 3 mm Hg. Pulmonic Valve: The pulmonic valve leaflets are thin and pliable; valve motion is normal. There is no pulmonic valvular stenosis. There is mild to moderate pulmonic regurgitation. Great Vessels: The aortic root is normal size. The ascending aorta is normal in size. The pulmonary artery is normal size. The IVC is of normal diameter and collapses greater than 50% with a sniff. This suggests a low right atrial pressure of 3 mm Hg. Pericardium/ Pleura There is no pericardial effusion. There is no pleural effusion. MMode/2D Measurements & Calculations LVIDd: 3.5 cm LVOT diam: 1.7 cm LVIDs: 2.5 cm Ao root diam: 3.4 cm FS: 28.6 % asc Aorta Diam: 2.6 cm EPSS: 0.70 cm IVSd: 1.2 cm LVPWd: 0.90 cm LV burgess. diameter/BSA (cm/m^2): 2.2 LV sys. diameter/BSA (cm/m^2): 1.6 LA A2 area: 13.0 cm2 RA long axis: 5.3 cm LA A4 area: 16.1 cm2 RA area: 17.4 cm2 LA length (vol): 4.6 cm RA vol: 48.9 ml LA vol: 39.0 ml RA : 30.4 ml/m2 LA vol index: 24.2 ml/m2 RVD1 (basal): 3.6 cm LVLs ap4: 4.7 cm LVLd ap2: 5.7 cm TAPSE_phl: 2.5 cm LVLs ap2: 4.9 cm Doppler Measurements & Calculations Ao V2 max: 110.0 cm/sec LVOT Max Real: 80.9 cm/sec Ao V2 mean: 79.3 cm/sec LV V1 max P.6 mmHg Ao max P.0 mmHg LV V1 VTI: 19.2 cm Ao mean P.0 mmHg NARESH(I,D): 1.5 cm2 Ao V2 VTI: 28.8 cm NARESH(V,D): 1.7 cm2 sev ratio: 0.67 NARESH indexed to BSA (cm^2/m^2): 0.94 MV E max real: 75.8 cm/sec TR max real: 272.4 cm/sec MV A max real: 81.9 cm/sec TR max P.9 mmHg MV E/A: 0.93 PA V2 max: 72.6 cm/sec Med Peak E' Real: 5.1 cm/sec PA V2 mean: 52.1 cm/sec E/E' med: 14.8 PA mean P.0 mmHg Lat Peak E' Real: 5.5 cm/sec PA pr(Accel): 7.9 mmHg E/E' lat: 13.9 E/e' average: 14.3 MV dec time: 0.21 sec SV(LVOT): 43.6 ml AV VR_phl: 0.74 NARESH(VTI)/BSA_phl: 0.94 Reading Physician:11:04 AM
== END ==
PROVIDERS: Family Provider Internal Medicine; PCP Internal Medicine; Referring Provider Internal Medicine Cardiovascular Disease; Visit Provider Internal Medicine Cardiovascular Disease
DX: R06.02 Shortness of breath (principal); I51.7 Cardiomegaly; I35.1 Nonrheumatic aortic (valve) insufficiency; I07.1 Rheumatic tricuspid insufficiency
CPT/HCPCS: 93306

== ENCOUNTER → 2023-04-02 09:10 | Outpatient (CLI) | payer MEDICARE, OTHER, SELFPAY ==
[2023-04-02 11:45] LABS: BUN Creatinine Ratio 24.7 (6-22); Blood Urea Nitrogen 24 mg/dL (7-17); Calcium 9.2 mg/dL (8.4-10.2); Carbon Dioxide 33 mmol/L (22-32); Chloride 99 mmol/L (98-107); Estimated Glomerular Filt Rate 57 mL/min (>60); Glucose 89 mg/dL (80-110); HEMOLYSIS < 15 (0-50); Potassium 3.8 mmol/L (3.4-5.1); Sodium 139 mmol/L (137-145)
== END ==
PROVIDERS: Family Provider Internal Medicine; PCP Internal Medicine; Referring Provider Internal Medicine Cardiovascular Disease; Visit Provider Internal Medicine Cardiovascular Disease
DX: I10 Essential (primary) hypertension (principal)
CPT/HCPCS: 36415; 80048

== ENCOUNTER → 2023-05-23 11:52 | Outpatient (CLI) | payer MEDICARE, OTHER, SELFPAY ==
--- NOTE | 2023-05-23 | DI.MG.S_ITS ---
BILATERAL DIGITAL SCREENING MAMMOGRAM 3D/2D WITH CAD: 05/23/2023 CLINICAL: Routine screening. Comparison is made to exams dated: 05/13/2022 mammogram, 05/08/2021 mammogram, and 04/27/2020 mammogram - . Both breasts are extremely dense, which lowers the sensitivity of mammography (category d />75% glandular tissue). Current study was also evaluated with a Computer Aided Detection (CAD) system. There are benign calcifications in both breasts. There also are benign vascular calcifications in both breasts. Additionally, there are benign post operative findings in the left breast. No significant masses, calcifications, or other findings are seen in either breast. There has been no significant interval change. IMPRESSION: BENIGN There is no mammographic evidence of malignancy. A 1 year screening mammogram is recommended. This exam was interpreted at Station ID: [id number]. NOTE: For mammograms, a report in lay terms will be sent to the patient. Approximately 15% of breast malignancies will not be visualized mammographically. In the management of a palpable breast mass, a negative mammogram must not discourage biopsy of a clinically suspicious lesion. Electronically Signed By: Magaly salinas/omaira:05/23/2023 14:25:25 letter sent: Normal Exam ACR BI-RADS Category 2: Benign Finding(s) 3342F
== END ==
PROVIDERS: Family Provider Internal Medicine; PCP Internal Medicine; Referring Provider Internal Medicine; Visit Provider Internal Medicine
DX: Z12.31 Encounter for screening mammogram for malignant neoplasm of breast (principal)
CPT/HCPCS: 77063; 77067

== ENCOUNTER → 2023-08-15 12:14 | Outpatient (CLI) | payer MEDICARE, OTHER, SELFPAY ==
[2023-08-15 13:27] LABS: Alanine Aminotransferase 26 IU/L (<35); Albumin 4.2 g/dL (3.5-5.0); Albumin Globulin Ratio 1.4 (1.0-2.8); Alkaline Phosphatase 40 U/L (38-126); Aspartate Aminotransferase 29 IU/L (14-36); BUN Creatinine Ratio 25.8 (6-22); Bilirubin Total 0.5 mg/dL (0.2-1.3); Blood Urea Nitrogen 23 mg/dL (7-17); Calcium 9.8 mg/dL (8.4-10.2); Carbon Dioxide 30 mmol/L (22-32); Chloride 101 mmol/L (98-107); Cholesterol 140 mg/dL (140-199); Estimated Glomerular Filt Rate > 60 mL/min (>60); Globulin 2.9 g/dL (1.7-4.1); Glucose 97 mg/dL (80-110); HDL Cholesterol 55 mg/dL (40-60); HEMOLYSIS < 15 (0-50); LDL Cholesterol Calculated 55 mg/dL (<100); Magnesium 1.8 mg/dL (1.6-2.3); Potassium 4.1 mmol/L (3.4-5.1); Sodium 137 mmol/L (137-145); Total Protein 7.1 g/dL (6.3-8.2); Triglycerides 152 mg/dL (35-150)
[2023-08-15 13:33] LABS: Add Manual Diff / Slide Review NO; Basophils Absolute Auto 100 /uL (0-100); Basophils Percent Auto 0.7 % (0-2); Eosinophils Absolute Auto 200 /uL (0-450); Eosinophils Percent Auto 2.2 % (2-4); Hematocrit 37.5 % (36-46); Hemoglobin 12.5 g/dL (12.0-16.0); Lymphocytes Absolute Auto 1200 /uL (1100-4500); Lymphocytes Percent Auto 17.3 % (25-40); Mean Corpuscular HGB Conc 33.5 % (30-36); Mean Corpuscular Hemoglobin 29.9 PG (26-34); Mean Corpuscular Volume 89.4 fL (80-100); Monocytes Absolute Auto 700 /uL (0-900); Monocytes Percent Auto 9.9 % (3-14); Neutrophils Absolute Auto 4900 /uL (1500-7000); Neutrophils Percent Auto 69.9 % (50-75); Platelet Count 216 X10^3/uL (150-400); Red Blood Cell Count 4.19 X10^6/uL (4.0-5.2); Red Cell Distribution Width 13.5 % (11.6-14.8); White Blood Cell Count 6.9 X10^3/uL (4.5-11.0)
[2023-08-15 14:02] LABS: TSH w/ Reflex to FT4 0.28 uIU/mL (0.47-4.68)
[2023-08-15 14:28] LABS: Free T4, Direct Thyroxine 1.16 ng/dL (0.78-2.19)
[2023-08-15 17:00] LABS: Hemoglobin A1C% w Est Avg Glu 6.2 % (4.0-6.0)
== END ==
PROVIDERS: Family Provider Internal Medicine; PCP Internal Medicine; Referring Provider Internal Medicine Cardiovascular Disease; Visit Provider Internal Medicine Cardiovascular Disease
DX: R06.02 Shortness of breath (principal); R79.9 Abnormal finding of blood chemistry, unspecified; I10 Essential (primary) hypertension; E78.5 Hyperlipidemia, unspecified; Z13.1 Encounter for screening for diabetes mellitus; I25.118 Atherosclerotic heart disease of native coronary artery with other forms of angina pectoris
CPT/HCPCS: 36415; 80053; 80061; 83036; 83735; 84439; 84443; 85025

== ENCOUNTER → 2023-09-22 09:31 | Outpatient (CLI) | payer MEDICARE, OTHER, SELFPAY ==
[2023-09-22 11:05] LABS: Blood Urea Nitrogen 20 mg/dL (7-17); Calcium 10.1 mg/dL (8.4-10.2); Carbon Dioxide 27 mmol/L (22-32); Chloride 103 mmol/L (98-107); Estimated Glomerular Filt Rate 55 mL/min (>60); Glucose 106 mg/dL (80-110); HEMOLYSIS < 15 (0-50); Potassium 4.4 mmol/L (3.4-5.1); Sodium 136 mmol/L (137-145)
== END ==
PROVIDERS: Family Provider Internal Medicine; PCP Internal Medicine; Referring Provider Internal Medicine Cardiovascular Disease; Visit Provider Internal Medicine Cardiovascular Disease
DX: I10 Essential (primary) hypertension (principal)
CPT/HCPCS: 36415; 80048

== ENCOUNTER → 2023-10-22 09:12 | Outpatient (CLI) | payer MEDICARE, OTHER, SELFPAY ==
--- NOTE | 2023-10-22 09:15 | DI.NM.S_ITS ---
PROCEDURE: NM EDGAR PERF SPECT R&S PHARM Rest and pharmacological stress myocardial perfusion SPECT with gated imaging and ejection fraction RADIOPHARMACEUTICAL: 11.4 mCi Tc-99m tetrafosmin IV at rest and 26.7 mCi Tc-99m tetrafosmin IV at peak effect of pharmacological stress. A 2-eui-nbyuivdx was performed. INDICATIONS: CAD / SOB TECHNIQUE: Radiopharmaceutical was injected at peak stress test, and also at rest. SPECT images were obtained. SPECT myocardial perfusion images were displayed in short axis, horizontal long axis, and vertical long axis views. Gated images were reviewed using [employer] software. COMPARISON: None. CARDIAC STRESS: A pharmacologic stress test was performed under the supervision of an attending staff, using an infusion of regadenoson 0.4 mg IV. Hemodynamic data: There is normal blood pressure and heart rate response to pharmacologic stress. Symptoms: The patient denied anginal chest pain. EKG: No diagnostic changes of ischemia; no ectopy. FINDINGS: Raw data: There is good myocardial uptake of radiotracer. No significant motion artifacts. Ketw-mn-umowo ratio is 0.44 (normal is less than 0.38 for tetrafosmin tracer). Left ventricle function: Gated images demonstrate normal left ventricular wall thickening. No segmental wall motion abnormalities. No transient ischemic dilation; TID is 0.95 (normal less than 1.3). Left ventricle resting end diastolic volume is 53 mL. Left ventricle stress ejection fraction is >75%; normal range is above 45%. Myocardial perfusion: There is normal distribution of activity in the right and left ventricular myocardium. No fixed or reversible perfusion defects. IMPRESSION: Low risk study. No evidence of pharmacologic induced ischemia or scar. Small LV cavity size with hyperdynamic function. Dictated by: Lulu Hua D.O. on 10/22/2023 at 16:28 Approved by: Lulu Hua D.O. on 10/22/2023 at 16:29
== END ==
PROVIDERS: Family Provider Internal Medicine; PCP Internal Medicine; Referring Provider Internal Medicine Cardiovascular Disease; Visit Provider Internal Medicine Cardiovascular Disease
DX: R06.02 Shortness of breath (principal); I25.118 Atherosclerotic heart disease of native coronary artery with other forms of angina pectoris
CPT/HCPCS: 78452; 93017; A9502; J2785

== ENCOUNTER → 2024-01-15 08:32 | Outpatient (CLI) | payer MEDICARE, OTHER, SELFPAY ==
[2024-01-15 09:47] LABS: Hemoglobin 12.3 g/dL (12.0-16.0); Mean Corpuscular HGB Conc 33.4 % (30-36); Mean Corpuscular Hemoglobin 30.1 PG (26-34); Mean Corpuscular Volume 90.3 fL (80-100); Platelet Count 204 X10^3/uL (150-400); Red Cell Distribution Width 13.8 % (11.6-14.8); White Blood Cell Count 8.2 X10^3/uL (4.5-11.0)
[2024-01-15 10:32] LABS: Alanine Aminotransferase 24 IU/L (<35); Albumin 3.9 g/dL (3.5-5.0); Albumin Globulin Ratio 1.4 (1.0-2.8); Alkaline Phosphatase 44 U/L (38-126); Amylase 72 U/L (30-110); Aspartate Aminotransferase 27 IU/L (14-36); BUN Creatinine Ratio 23.5 (6-22); Bilirubin Total 0.7 mg/dL (0.2-1.3); Blood Urea Nitrogen 24 mg/dL (7-17); Calcium 9.8 mg/dL (8.4-10.2); Carbon Dioxide 28 mmol/L (22-32); Chloride 105 mmol/L (98-107); Estimated Glomerular Filt Rate 53 mL/min (>60); Globulin 2.7 g/dL (1.7-4.1); Glucose 93 mg/dL (80-110); HEMOLYSIS < 15 (0-50); Lipase 287 U/L (23-300); Potassium 4.3 mmol/L (3.4-5.1); Sodium 138 mmol/L (137-145); Total Protein 6.6 g/dL (6.3-8.2)
== END ==
PROVIDERS: Family Provider Internal Medicine; PCP Internal Medicine; Referring Provider Internal Medicine; Visit Provider Internal Medicine
DX: R10.84 Generalized abdominal pain (principal)
CPT/HCPCS: 36415; 80053; 82150; 83690; 85027

== ENCOUNTER → 2024-01-16 07:39 | Outpatient (CLI) | payer MEDICARE, OTHER, SELFPAY ==
--- NOTE | 2024-01-16 07:41 | DI.CT.S_ITS ---
PROCEDURE: CT ABDOMEN PELVIS W CON INDICATIONS: abdominal pain TECHNIQUE: After the administration of intravenous contrast, axial sections acquired from the lung bases to the pubic symphysis. Coronal and sagittal reformats were performed. For radiation dose reduction, the following was used: automated exposure control, adjustment of mA and/or kV according to patient size. COMPARISON: [facility], CT, ABDOMEN/PELVIS WITH CONTRAST, 05/23/2017, 11:42. FINDINGS: Image quality: Diagnostic. Lower Chest: Suggestion of cardiomegaly ABDOMEN: Liver: No solid mass. Gallbladder: No radiopaque gallstones or wall thickening. Biliary ducts: No biliary dilation. Pancreas: Atrophy. Spleen: Size is within normal limits. Multiple calcified splenic aneurysm again noted Adrenal Glands: No adrenal nodules. Kidneys and Ureters: No hydronephrosis. No solid mass. No complex renal cystic lesion which requires follow up. Stomach and Bowel: No evidence of bowel obstruction. Severe diverticulosis of the entire colon is again noted especially the distal colon. Peritoneum: No abnormal intraperitoneal fluid. No free air. Ventral Wall: No significant ventral hernia. Abdominal Nodes: No retroperitoneal or mesenteric adenopathy by size criteria. Vessels: Aorta and inferior vena cava are normal in size. PELVIS: Pelvic Organs: 1.8 x 1.0 cm left adnexal soft tissue density appears similar to prior study from 2017, benign. Nonvisualized uterus. Bladder: Bladder is completely decompressed and poorly evaluated. Pelvic Nodes: No enlarged lymph nodes. Miscellaneous: No inguinal hernias are seen. Bones: Schmorl's node of the superior endplate L3. Compression deformity of T12 body with approximately 50% height loss anteriorly IMPRESSION: 1. 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 Nonvisualized uterus 3. Severe diverticulosis again noted 4. Suggestion of cardiomegaly Dictated by: Antonio Ferraro M.D. on 01/16/2024 at 12:18 Approved by: Antonio Ferraro M.D. on 01/16/2024 at 12:43
== END ==
PROVIDERS: Family Provider Internal Medicine; PCP Internal Medicine; Referring Provider Internal Medicine; Visit Provider Internal Medicine
DX: I72.8 Aneurysm of other specified arteries (principal); K57.90 Diverticulosis of intestine, part unspecified, without perforation or abscess without bleeding; M43.8X4 Other specified deforming dorsopathies, thoracic region; R10.84 Generalized abdominal pain
CPT/HCPCS: 74177; Q9967

== ENCOUNTER → 2024-05-26 15:40 | Outpatient (CLI) | payer MEDICARE, OTHER, SELFPAY ==
--- NOTE | 2024-05-26 15:41 | DI.MG.S_ITS ---
BILATERAL DIGITAL SCREENING MAMMOGRAM 3D/2D WITH CAD: 05/26/2024 CLINICAL: Routine screening. Comparison is made to exams dated: 05/23/2023 mammogram, 05/13/2022 mammogram, and 05/08/2021 mammogram - [facility]. Both breasts are heterogeneously dense, which may obscure small masses (category c / 51-75% glandular tissue). Current study was also evaluated with a Computer Aided Detection (CAD) system. There are benign calcifications in both breasts. There also are benign vascular calcifications in both breasts. Additionally, there are benign post operative findings in the left breast. No significant masses, calcifications, or other findings are seen in either breast. There has been no significant interval change. IMPRESSION: BENIGN There is no mammographic evidence of malignancy. A 1 year screening mammogram is recommended. This exam was interpreted at Station ID: [id number]. NOTE: For mammograms, a report in lay terms will be sent to the patient. Approximately 15% of breast malignancies will not be visualized mammographically. In the management of a palpable breast mass, a negative mammogram must not discourage biopsy of a clinically suspicious lesion. Electronically Signed By: Emmett barraza/omaira:05/27/2024 12:58:28 letter sent: Normal Exam ACR BI-RADS Category 2: Benign Finding(s) 3342F
== END ==
PROVIDERS: Family Provider Internal Medicine; PCP Internal Medicine; Referring Provider Internal Medicine; Visit Provider Internal Medicine
DX: Z12.31 Encounter for screening mammogram for malignant neoplasm of breast (principal); R92.333 Mammographic heterogeneous density, bilateral breasts
CPT/HCPCS: 77063; 77067

== ENCOUNTER → 2024-09-13 09:12 | Outpatient (CLI) | payer MEDICARE, OTHER, SELFPAY ==
--- NOTE | 2024-09-13 | DI.ECHO.S_ITS ---
[facility] : : [address] : : [place] : : [id number] : : Phone: [phone] Echocardiogram Report + + :Name: ESTEBAN ENGLISH Study Date: 09/13/2024 Height: 63 in : :[facility] ReadingLocation: Weight: 120 lb : : Gender: Female BSA: 1.6 m2 : :: 1935 Age: 89 yrs BP: 125/67 mmHg: :Reason For Study: CHRONIC DIASTOLIC CONGESTIVE HEART FAILURE : :Ordering Physician: REUBEN, : :RAVEN Performed By: Briseida Garcia : :Referring: RAVEN ALEXIS : + + Interpretation Summary The ejection fraction is estimated to be 55-60%. Grade II diastolic dysfunction. The left atrium is mildly dilated. The right ventricle is normal in size and function. There is mild mitral regurgitation. There is mild aortic regurgitation. There is moderate to severe tricuspid regurgitation. The right ventricular systolic pressure is estimated to be at least 35 mmHg based on an estimated right atrial pressure of 3 mm Hg. Compared to the prior study dated 03/21/2023, no significant change. Procedure: A two-dimensional transthoracic echocardiogram with color flow and Doppler was performed. The study quality was technically adequate. Comparison is made with the echocardiogram of 03/21/2023. The patient was in sinus rhythm with heart rates between 55-74 bpm during the exam. Left Ventricle: The left ventricle is normal in size. Proximal septal thickening is noted. The ejection fraction is estimated to be 55-60%. Diastolic parameters suggest a pseudonormalization pattern, consistent with probable elevated filling pressures. Right Ventricle: The right ventricle is normal in size and function. Atria: The left atrium is mildly dilated. Right atrial size is normal. There is no Doppler evidence for an interatrial shunt. The atrial septum is aneurysmal. Mitral Valve: The mitral valve is normal. There is mild mitral regurgitation. Aortic Valve: The aortic valve is trileaflet. The aortic valve opens well. There is no aortic valve stenosis. There is mild aortic regurgitation. Tricuspid Valve: The tricuspid valve leaflets are thin and pliable. There is moderate to severe tricuspid regurgitation. The right ventricular systolic pressure is estimated to be at least 35 mmHg based on an estimated right atrial pressure of 3 mm Hg. Pulmonic Valve: The pulmonic valve leaflets are thin and pliable; valve motion is normal. There is mild to moderate pulmonic regurgitation. Great Vessels: The aortic root is normal size. The dimensions of the ascending aorta are normal. The IVC is of normal diameter and collapses greater than 50% with a sniff. This suggests a low right atrial pressure of 3 mm Hg. Pericardium/ Pleura There is no pericardial effusion. There is no pleural effusion. MMode/2D Measurements & Calculations LVIDd: 4.1 cm LVOT diam: 2.0 cm LVIDs: 2.8 cm Ao root diam: 3.1 cm FS: 31.3 % asc Aorta Diam: 2.8 cm IVSd: 0.66 cm LVPWd: 0.49 cm LV burgess. diameter/BSA (cm/m^2): 2.7 LV sys. diameter/BSA (cm/m^2): 1.8 LA A2 area: 17.8 cm2 RA long axis: 4.8 cm LA A4 area: 17.8 cm2 RA area: 14.6 cm2 LA length (vol): 4.3 cm RA vol: 37.5 ml LA vol: 62.0 ml RA : 24.1 ml/m2 LA vol index: 39.8 ml/m2 IVC diam: 1.5 cm RVD1 (basal): 2.8 cm RVD2 (mid): 2.3 cm TAPSE: 1.7 cm Doppler Measurements & Calculations Ao V2 max: 102.9 cm/sec LVOT Max Real: 81.3 cm/sec Ao V2 mean: 75.3 cm/sec LV V1 max P.6 mmHg Ao max P.2 mmHg LV V1 VTI: 18.4 cm Ao mean P.5 mmHg NARESH(I,D): 2.2 cm2 Ao V2 VTI: 24.9 cm NARESH(V,D): 2.4 cm2 sev ratio: 0.74 NARESH indexed to BSA (cm^2/m^2): 1.4 AI P1/2t: 550.7 msec AI dec slope: 193.0 cm/sec2 MV E max real: 55.9 cm/sec TR max real: 281.7 cm/sec MV A max real: 90.5 cm/sec TR max P.7 mmHg MV E/A: 0.62 PA V2 max: 74.8 cm/sec Med Peak E' Real: 4.8 cm/sec PA V2 mean: 55.2 cm/sec E/E' med: 11.6 PA mean P.3 mmHg Lat Peak E' Real: 4.5 cm/sec PA pr(Accel): 29.3 mmHg E/E' lat: 12.3 E/e' average: 12.0 MV dec time: 0.18 sec [facility] 55.0 ml Reading Physician:09:15 AM
== END ==
PROVIDERS: Family Provider Internal Medicine; PCP Internal Medicine; Referring Provider Nurse Practitioner Acute Care; Visit Provider Nurse Practitioner Acute Care
DX: I50.32 Chronic diastolic (congestive) heart failure (principal); I08.3 Combined rheumatic disorders of mitral, aortic and tricuspid valves
CPT/HCPCS: 93306

== ENCOUNTER → 2024-10-04 09:11 | Outpatient (CLI) | payer MEDICARE, OTHER, SELFPAY ==
[2024-10-04 09:56] LABS: Add Manual Diff / Slide Review NO; Basophils Absolute Auto 100 /uL (0-100); Basophils Percent Auto 0.7 % (0-2); Eosinophils Absolute Auto 200 /uL (0-450); Eosinophils Percent Auto 2.2 % (2-4); Hematocrit 42.1 % (36-46); Hemoglobin 14.1 g/dL (12.0-16.0); Lymphocytes Absolute Auto 1600 /uL (1100-4500); Lymphocytes Percent Auto 20.2 % (25-40); Mean Corpuscular HGB Conc 33.5 % (30-36); Mean Corpuscular Hemoglobin 30.6 PG (26-34); Mean Corpuscular Volume 91.5 fL (80-100); Monocytes Absolute Auto 800 /uL (0-900); Monocytes Percent Auto 10.5 % (3-14); Neutrophils Absolute Auto 5200 /uL (1500-7000); Neutrophils Percent Auto 66.4 % (50-75); Platelet Count 231 X10^3/uL (150-400); Red Cell Distribution Width 13.4 % (11.6-14.8); White Blood Cell Count 7.8 X10^3/uL (4.5-11.0)
[2024-10-04 10:14] LABS: Hemoglobin A1C% w Est Avg Glu 5.7 % (4.0-6.0)
[2024-10-04 10:47] LABS: Alanine Aminotransferase 27 IU/L (<35); Albumin 4.1 g/dL (3.5-5.0); Albumin Globulin Ratio 1.6 (1.0-2.8); Alkaline Phosphatase 62 U/L (38-126); Aspartate Aminotransferase 30 IU/L (14-36); BUN Creatinine Ratio 19.6 (6-22); Bilirubin Total 0.7 mg/dL (0.2-1.3); Blood Urea Nitrogen 22 mg/dL (7-17); Calcium 9.7 mg/dL (8.4-10.2); Carbon Dioxide 28 mmol/L (22-32); Chloride 104 mmol/L (98-107); Cholesterol 148 mg/dL (140-199); Estimated Glomerular Filt Rate 47 mL/min (>60); Globulin 2.6 g/dL (1.7-4.1); Glucose 88 mg/dL (80-110); HDL Cholesterol 63 mg/dL (40-60); HEMOLYSIS < 15 (0-50); LDL Cholesterol Calculated 62 mg/dL (<100); Magnesium 1.6 mg/dL (1.6-2.3); Potassium 4.4 mmol/L (3.4-5.1); Sodium 137 mmol/L (137-145); Total Protein 6.7 g/dL (6.3-8.2); Triglycerides 115 mg/dL (35-150)
== END ==
PROVIDERS: Family Provider Internal Medicine; PCP Internal Medicine; Referring Provider Internal Medicine Cardiovascular Disease; Visit Provider Internal Medicine Cardiovascular Disease
DX: I25.118 Atherosclerotic heart disease of native coronary artery with other forms of angina pectoris (principal); Z13.1 Encounter for screening for diabetes mellitus; I11.0 Hypertensive heart disease with heart failure; E78.5 Hyperlipidemia, unspecified; I50.32 Chronic diastolic (congestive) heart failure
CPT/HCPCS: 36415; 80053; 80061; 83036; 83735; 84443; 85025

== ENCOUNTER → 2024-11-16 11:21 | Outpatient (CLI) | payer MEDICARE, OTHER, SELFPAY ==
[2024-11-16 12:50] LABS: Appearance Urine UA CLEAR; Bilirubin Urine UA NEGATIVE (NEGATIVE); Color Urine UA YELLOW; Glucose Urine UA NEGATIVE (Negative); Ketones Urine UA TRACE (NEGATIVE); Leukocyte Esterase Urine UA TRACE (NEGATIVE); Nitrite Urine UA POSITIVE (Negative); Occult Blood Urine UA NEGATIVE (Negative); Protein Urine UA NEGATIVE (Negative); Urobilinogen Urine UA 0.2 E.U./dL (0.2)
[2024-11-16 13:24] LABS: Bacteria Urine Many (>30); Culture Indicated Urine Specimen Cultured; RBC Urine None Seen (0-5/HPF); Squamous Epithelial Cell Urine None Seen (0-5/HPF); Urine Volume 10mL (spun); WBC Urine 10-30/HPF (0-5/HPF)
== END ==
PROVIDERS: Family Provider Internal Medicine; PCP Internal Medicine; Visit Provider Internal Medicine
DX: N30.00 Acute cystitis without hematuria (principal)
CPT/HCPCS: 81001; 87077; 87086; 87186

== ENCOUNTER 2024-12-09 13:03 | Observation (INO) | payer MEDICARE, OTHER, SELFPAY ==
[2024-12-09] VITALS (19 sets, daily range): BP systolic 91–136; BP diastolic 47–73; PULSE 60–86; RESP 14–21; TEMP 36.6–36.8; O2SAT 92–98; BMI 22.1; BMI 21.7
--- NOTE | 2024-12-09 13:36 | EKG_ITS ---
[place] [id number] [place] [id number] Test Date: 2024-12-09 Pat Name: Emmanuelle Apodaca Department: [facility] Room: Gender: Female Marketing Content Manager: HILARIO : 1935 Requested By: Order Number: [id number] Reading MD: Renzo Lan MD Measurements Intervals [place] Rate: 65 P: 80 WI: 196 QRS: 50 QRSD: 62 T: 47 QT: 406 QTc: 422 Interpretive Statements Sinus rhythm with premature atrial complexes Low voltage QRS Septal infarct , age undetermined Electronically Signed On 12-09-2024 14:10:17 PST by Renzo Lan MD
--- NOTE | 2024-12-09 13:37 | EKG_ITS ---
[facility] [address] [place] [address] Test Date: 2024-12-09 Pat Name: Emmanuelle Apodaca Department: [facility] Room: 205 Gender: Female [employer]ter [employer]: HILARIO : 1935 Requested By: Order Number: [id number] Reading MD: Renzo Lan MD Measurements Intervals [place] Rate: 65 P: 76 PA: 194 QRS: 46 QRSD: 60 T: 53 QT: 406 QTc: 422 Interpretive Statements Normal sinus rhythm Low voltage QRS Septal infarct , age undetermined Electronically Signed On 12-10-2024 7:24:06 PST by Renzo Lan MD
[2024-12-09 14:02] LABS: Add Manual Diff / Slide Review NO; Basophils Absolute Auto 100 /uL (0-100); Basophils Percent Auto 0.4 % (0-2); Eosinophils Absolute Auto 100 /uL (0-450); Eosinophils Percent Auto 0.5 % (2-4); Hemoglobin 12.7 g/dL (12.0-16.0); Lymphocytes Absolute Auto 1200 /uL (1100-4500); Lymphocytes Percent Auto 7.5 % (25-40); Mean Corpuscular HGB Conc 33.4 % (30-36); Mean Corpuscular Hemoglobin 30.5 PG (26-34); Mean Corpuscular Volume 91.4 fL (80-100); Monocytes Absolute Auto 900 /uL (0-900); Monocytes Percent Auto 5.7 % (3-14); Neutrophils Absolute Auto 13800 /uL (1500-7000); Neutrophils Percent Auto 85.9 % (50-75); Platelet Count 255 X10^3/uL (150-400); Red Blood Cell Count 4.16 X10^6/uL (4.0-5.2); Red Cell Distribution Width 13.9 % (11.6-14.8); White Blood Cell Count 16.1 X10^3/uL (4.5-11.0)
[2024-12-09 14:19] LABS: Alanine Aminotransferase 30 IU/L (<35); Albumin 4.3 g/dL (3.5-5.0); Albumin Globulin Ratio 1.5 (1.0-2.8); Alkaline Phosphatase 38 U/L (38-126); Aspartate Aminotransferase 35 IU/L (14-36); BUN Creatinine Ratio 31.2 (6-22); Bilirubin Total 0.7 mg/dL (0.2-1.3); Blood Urea Nitrogen 34 mg/dL (7-17); Calcium 9.6 mg/dL (8.4-10.2); Carbon Dioxide 25 mmol/L (22-32); Chloride 105 mmol/L (98-107); Estimated Glomerular Filt Rate 49 mL/min (>60); Globulin 2.8 g/dL (1.7-4.1); Glucose 77 mg/dL (80-110); HEMOLYSIS 37 (0-50); Lipase 185 U/L (23-300); Potassium 4.5 mmol/L (3.4-5.1); Sodium 137 mmol/L (137-145); Total Protein 7.1 g/dL (6.3-8.2)
[2024-12-09 14:51] LABS: Ictotest Urine Negative (Negative); Urine Volume Low Vol <10mL (spun)
[2024-12-09 14:58] LABS: Bacteria Urine Occasional (0-1); Culture Indicated Urine Cult Not Indicated; Mucus Urine 1+ (Negative); RBC Urine 0-1/HPF (0-5/HPF); Squamous Epithelial Cell Urine 0-1 /HPF (0-5/HPF); WBC Urine 0-1/HPF (0-5/HPF)
--- NOTE | 2024-12-09 17:00 | PC.NURSE ---
Pt reports 5/10 abd pain. Offered Tylenol, pt declined. Pt wants to see provider for other pain med choices. Charge aware.
--- NOTE | 2024-12-09 17:16 | ED.ABDPAIN ---
HPI - Abdominal Pain <Austyn Sorto DO - Last Filed: 12/09/24 18:04> General Chief Complaint: Abdominal Pain Stated Complaint: ABD pain from ribcage down Time Seen by Provider: 12/09/24 17:16 Source: patient and family Mode of arrival: Ambulatory History of Present Illness HPI narrative: 89-year-old female with a history of hypertension hyperlipidemia CAD, comes into the ED from home for evaluation of left-sided abdominal pain started around 8:00 a.m. this morning, started spontaneously nothing making it better, states that pressure makes it worse.. Patient denies any vomiting but does endorse nausea. To note patient states she has a history of splenic artery aneurysm repair, hysterectomy. Patient states, that she has not having any other symptoms such as headache visual disturbances chest pain shortness of breath fever chills or any other GI/ symptoms at this time. Related Data Home Medications Medication Instructions Recorded Confirmed spironolactone 25 mg tablet 25 mg PO DAILY 10/16/23 12/09/24 aspirin 81 mg capsule 81 mg PO DAILY 11/16/24 12/09/24 Previous Rx's Medication Instructions Recorded amlodipine 5 mg tablet 5 mg PO DAILY #90 tabs 12/18/21 isosorbide mononitrate 60 mg 60 mg PO DAILY #90 tabs 12/18/21 tablet,extended release 24 hr lisinopril 10 mg tablet 10 mg PO DAILY #90 tabs 12/18/21 metoprolol succinate 50 mg 50 mg PO DAILY #90 tabs 12/18/21 tablet,extended release 24 hr atorvastatin 40 mg tablet 40 mg PO QPM #90 tabs 06/06/22 sertraline 50 mg tablet 50 mg PO DAILY #90 tabs 11/16/24 Allergies Allergy/AdvReac Type Severity Reaction Status Date / Time Penicillins [PENICILLINS] Allergy Severe Rash Verified 11/16/24 10:16 mirtazapine AdvReac Intermediate nightmares Verified 11/16/24 10:16 Review of Systems <Austyn Sorto DO - Last Filed: 12/09/24 18:04> Review of Systems Narrative: General: Denies fever, chills, weight loss HEENT: Denies headache, eye drainage, eye irritation, head trauma, sore throat, voice change Cardiovascular: Denies any chest pain, palpitations, shortness of breath, tachycardia Respiratory: Denies any shortness of breath, cough, wheeze, stridor GI/: Positive abdominal pain, nausea, denies vomiting, diarrhea, bright red blood per rectum, melanotic stools, urinary frequency, urinary retention, dysuria, hematuria MSK: Denies any joint pain, muscle pains, swelling Skin: Denies any rashes, lesions, discoloration Neuro: Denies any headache, lightheadedness, dizziness, fainting, weakness Psych: Denies SI/HI Patient History <Austyn Sorto DO - Last Filed: 12/09/24 18:04> Medical History (Updated 12/09/24 @ 20:29 by Jacob Martínez MD) Chronic low back pain Depression, major, recurrent Chronic diastolic heart failure Cerebrovascular disease Gait instability Venous (peripheral) insufficiency Diplopia Osteopenia Do not resuscitate Benign paroxysmal vertigo, bilateral Peripheral neuropathy Osteoporosis (~2014) Left carotid artery occlusion (~2007) Essential hypertension Mixed hyperlipidemia Coronary artery disease Stroke (~2007) Hearing loss Cataracts, bilateral Colon polyps Radial fracture Fracture of ulnar styloid Surgical History Anesthesia History of surgery on wrist (~03/27/16) History of cardiac catheterization (~04/19/10) History of heart attack (~05/08/09) History of coronary artery stent placement (~01/20/09) History of shoulder surgery (~02/25/07) History of ankle surgery (~10/09/00) Aneurysm, splenic artery (~1991) History of colonoscopy (~1990) Aneurysm of carotid artery (~12/06/85) History of hysterectomy (~1965) History of dilatation and curettage History of neck surgery (~1961) History of left breast biopsy (~1959) Family History Father History of heart disease Mother Cancer Grandfather History of heart disease Grandmother History of heart disease Grandfather Colon cancer Grandmother Stroke Social History details: 2019 (George), grown children, retired household members: none Smoking Status: Never smoker Smoking Status: Never smoker Exam <Austyn Sorto DO - Last Filed: 12/09/24 18:04> Narrative Exam Narrative: General: Cooperative, comfortable, well-developed, not in acute distress HEENT: Normocephalic, atraumatic, PERRLA, normal sclera, eyelids normal, Neck: Active full range of motion, atraumatic Chest: Normal to inspection, negative crepitus, no overlying erythema ecchymosis Respiratory: Normal respiratory effort, not in acute respiratory distress, clear to auscultation bilaterally negative cough, wheeze, tachypnea, rhonchi, rales Cardiology: Regular rate rhythm negative gallop, murmur, rubs GI/: Normal to inspection, soft, nonrigid, tender to palpation diffusely, exam deferred MSK: Full range of active range of motion of all 4 extremities, atraumatic Skin: No rashes lesions noted Neuro: Alert awake oriented x3, moves all 4 extremities spontaneously, cranial nerves intact, able to answer all questions appropriately follows commands appropriately Psych: Cooperative, negative suicidal or homicidal ideations Initial Vital Signs Initial Vital Signs: Vital Signs Temperature 98.3 F 12/09/24 13:17 Pulse Rate 78 12/09/24 13:17 Respiratory Rate 20 12/09/24 13:17 Blood Pressure 122/61 12/09/24 13:17 Pulse Oximetry 98 12/09/24 13:17 Oxygen Delivery Method Room Air 12/09/24 13:17 <Jacob Martínez MD - Last Filed: 12/10/24 02:48> Initial Vital Signs Initial Vital Signs: Vital Signs Temperature 98.3 F 12/09/24 13:17 Pulse Rate 78 12/09/24 13:17 Respiratory Rate 20 12/09/24 13:17 Blood Pressure 122/61 12/09/24 13:17 Pulse Oximetry 98 12/09/24 13:17 Oxygen Delivery Method Room Air 12/09/24 13:17 Course <Austyn Sorto DO - Last Filed: 12/09/24 18:04> Orders Ordered: ED Orders 12/09/24 18:25 Lactate (Lactic Acid) Stat MAG [Magnesium] Stat Troponin & CK Cardiac Panel Stat Acetaminophen (Acetaminophen 325 Mg Tablet) 650 mg PO Q6H PRN PRN Reason: Fever/Mild Pain (1-3) Hydrocodone Bitart/Acetaminophen (Hydrocodone/Acet 5/325 Tablet) 1 tab PO Q4H PRN PRN Reason: Pain, Moderate (4-6) Amlodipine Besylate (Amlodipine 5 Mg Tablet) 5 mg PO DAILY [facility] Aspirin (Aspirin Ec 81 Mg Tablet) 81 mg PO DAILY [facility] Atorvastatin Calcium (Atorvastatin 20 Mg Tablet) 40 mg PO QPM [facility] Last Admin: 12/09/24 22:48 Dose: 40 mg Documented By: Heparin Sodium (Porcine) (Heparin 5,000 Unit/Ml Vial) 5,000 unit SUBCUT BID [facility] Last Admin: 12/09/24 22:47 Dose: 5,000 unit Documented By: Hydromorphone HCl (Hydromorphone 0.5 Mg Inj) 0.5 mg IV Q2H PRN PRN Reason: Pain, Severe (7-10) Lactated Ringer's (Lactated Ringers) 1,000 mls @ 100 mls/hr IV CONT [facility] Last Infusion: 12/10/24 01:06 Dose: 0 mls/hr Documented By: Admin: 12/09/24 21:40 Dose: 100 mls/hr Documented By: Dextrose/Lactated Ringer's (Dextrose 5%-Lactated Ringers) 1,000 mls @ 84 mls/hr IV CONT [facility] Last Admin: 12/10/24 01:06 Dose: 84 mls/hr Documented By: Isosorbide Mononitrate (Isosorbide Mononitrate Er 30 Mg Tablet) 60 mg PO DAILY [facility] Lisinopril (Lisinopril 10 Mg Tablet) 10 mg PO DAILY [facility] Metoprolol Succinate (Metoprolol Er 50 Mg Tablet) 50 mg PO DAILY [facility] Naloxone HCl (Naloxone 0.4 Mg/Ml Vial) 0.2 mg IV Q2MIN PRN PRN Reason: Opiate Reversal Ondansetron HCl (Ondansetron 4 Mg Odt) 4 mg PO NOW PRN PRN Reason: Nausea And Vomiting Ondansetron HCl (Ondansetron 4 Mg/2 Ml Inj) 4 mg IV Q4HR [facility] Last Admin: 12/10/24 01:01 Dose: Not Given Documented By: Admin: 12/09/24 22:58 Dose: Not Given Documented By: Sertraline HCl (Sertraline 50 Mg Tablet) 50 mg PO DAILY [facility] Spironolactone (Spironolactone 25 Mg Tablet) 25 mg PO DAILY [facility] Discontinued Medications Hydromorphone HCl (Hydromorphone 0.5 Mg Inj) 0.5 mg IV NOW ONE Stop: 12/09/24 19:10 Last Admin: 12/09/24 19:33 Dose: 0.5 mg Documented By: MORENITA Sodium Chloride (Normal Saline 0.9%) 1,000 mls @ 1,000 mls/hr IV BOLUS ONE Stop: 12/09/24 18:36 Last Infusion: 12/09/24 19:55 Dose: Infused Documented By: Admin: 12/09/24 17:45 Dose: 1,000 mls/hr Documented By: JUAN Sodium Chloride (Normal Saline 0.9%) 1,000 mls @ 1,000 mls/hr IV BOLUS ONE Stop: 12/09/24 21:28 Last Admin: 12/09/24 20:41 Dose: 1,000 mls/hr Documented By: MORENITA Morphine Sulfate (Morphine 4 Mg/Ml Inj) 2 mg IV NOW ONE Stop: 12/09/24 17:38 Last Admin: 12/09/24 17:45 Dose: 2 mg Documented By: JUAN Ondansetron HCl (Ondansetron 4 Mg/2 Ml Inj) 4 mg IV NOW PRN PRN Reason: Nausea And Vomiting Ondansetron HCl (Ondansetron 4 Mg/2 Ml Inj) 4 mg IV NOW ONE Stop: 12/09/24 17:38 Last Admin: 12/09/24 17:45 Dose: 4 mg Documented By: JUAN Pantoprazole Sodium (Pantoprazole 40 Mg Vial) 40 mg IV NOW ONE Stop: 12/09/24 20:28 Last Admin: 12/09/24 20:40 Dose: 40 mg Documented By: MORENITA Vital Signs Vital signs: Vital Signs - 8 hr 12/09/24 19:00 12/09/24 19:00 12/09/24 19:15 Pulse Rate 77 78 Respiratory Rate Blood Pressure 128/58 L Pulse Oximetry 97 95 Oxygen Delivery Method 12/09/24 19:15 12/09/24 19:30 12/09/24 19:30 Pulse Rate 71 Respiratory Rate 18 Blood Pressure 118/57 L 116/56 L Pulse Oximetry 96 Oxygen Delivery Method Room Air 12/09/24 19:45 12/09/24 19:45 12/09/24 20:00 Pulse Rate 70 67 Respiratory Rate Blood Pressure 96/49 L Pulse Oximetry 93 92 Oxygen Delivery Method 12/09/24 20:00 12/09/24 20:14 12/09/24 20:14 Pulse Rate 66 Respiratory Rate Blood Pressure 91/47 L 99/54 L Pulse Oximetry 92 Oxygen Delivery Method 12/09/24 20:15 12/09/24 20:15 12/09/24 20:30 Pulse Rate 65 Respiratory Rate Blood Pressure 94/51 L 97/53 L Pulse Oximetry 93 Oxygen Delivery Method 12/09/24 20:30 Pulse Rate 64 Respiratory Rate 14 Blood Pressure Pulse Oximetry 93 Oxygen Delivery Method Room Air <Jacob Martínez MD - Last Filed: 12/10/24 02:48> Orders Ordered: ED Orders 12/09/24 18:25 Lactate (Lactic Acid) Stat MAG [Magnesium] Stat Troponin & CK Cardiac Panel Stat Acetaminophen (Acetaminophen 325 Mg Tablet) 650 mg PO Q6H PRN PRN Reason: Fever/Mild Pain (1-3) Hydrocodone Bitart/Acetaminophen (Hydrocodone/Acet 5/325 Tablet) 1 tab PO Q4H PRN PRN Reason: Pain, Moderate (4-6) Amlodipine Besylate (Amlodipine 5 Mg Tablet) 5 mg PO DAILY [facility] Aspirin (Aspirin Ec 81 Mg Tablet) 81 mg PO DAILY [facility] Atorvastatin Calcium (Atorvastatin 20 Mg Tablet) 40 mg PO QPM [facility] Last Admin: 12/09/24 22:48 Dose: 40 mg Documented By: KLAUS Heparin Sodium (Porcine) (Heparin 5,000 Unit/Ml Vial) 5,000 unit SUBCUT BID [facility] Last Admin: 12/09/24 22:47 Dose: 5,000 unit Documented By: Hydromorphone HCl (Hydromorphone 0.5 Mg Inj) 0.5 mg IV Q2H PRN PRN Reason: Pain, Severe (7-10) Lactated Ringer's (Lactated Ringers) 1,000 mls @ 100 mls/hr IV CONT [facility] Last Infusion: 12/10/24 01:06 Dose: 0 mls/hr Documented By: Admin: 12/09/24 21:40 Dose: 100 mls/hr Documented By: Dextrose/Lactated Ringer's (Dextrose 5%-Lactated Ringers) 1,000 mls @ 84 mls/hr IV CONT [facility] Last Admin: 12/10/24 01:06 Dose: 84 mls/hr Documented By: Isosorbide Mononitrate (Isosorbide Mononitrate Er 30 Mg Tablet) 60 mg PO DAILY [facility] Lisinopril (Lisinopril 10 Mg Tablet) 10 mg PO DAILY [facility] Metoprolol Succinate (Metoprolol Er 50 Mg Tablet) 50 mg PO DAILY [facility] Naloxone HCl (Naloxone 0.4 Mg/Ml Vial) 0.2 mg IV Q2MIN PRN PRN Reason: Opiate Reversal Ondansetron HCl (Ondansetron 4 Mg Odt) 4 mg PO NOW PRN PRN Reason: Nausea And Vomiting Ondansetron HCl (Ondansetron 4 Mg/2 Ml Inj) 4 mg IV Q4HR [facility] Last Admin: 12/10/24 01:01 Dose: Not Given Documented By: Admin: 12/09/24 22:58 Dose: Not Given Documented By: KLAUS Sertraline HCl (Sertraline 50 Mg Tablet) 50 mg PO DAILY [facility] Spironolactone (Spironolactone 25 Mg Tablet) 25 mg PO DAILY [facility] Discontinued Medications Hydromorphone HCl (Hydromorphone 0.5 Mg Inj) 0.5 mg IV NOW ONE Stop: 12/09/24 19:10 Last Admin: 12/09/24 19:33 Dose: 0.5 mg Documented By: MORENITA Sodium Chloride (Normal Saline 0.9%) 1,000 mls @ 1,000 mls/hr IV BOLUS ONE Stop: 12/09/24 18:36 Last Infusion: 12/09/24 19:55 Dose: Infused Documented By: Admin: 12/09/24 17:45 Dose: 1,000 mls/hr Documented By: JUAN Sodium Chloride (Normal Saline 0.9%) 1,000 mls @ 1,000 mls/hr IV BOLUS ONE Stop: 12/09/24 21:28 Last Admin: 12/09/24 20:41 Dose: 1,000 mls/hr Documented By: MORENITA Morphine Sulfate (Morphine 4 Mg/Ml Inj) 2 mg IV NOW ONE Stop: 12/09/24 17:38 Last Admin: 12/09/24 17:45 Dose: 2 mg Documented By: JUAN Ondansetron HCl (Ondansetron 4 Mg/2 Ml Inj) 4 mg IV NOW PRN PRN Reason: Nausea And Vomiting Ondansetron HCl (Ondansetron 4 Mg/2 Ml Inj) 4 mg IV NOW ONE Stop: 12/09/24 17:38 Last Admin: 12/09/24 17:45 Dose: 4 mg Documented By: JUAN Pantoprazole Sodium (Pantoprazole 40 Mg Vial) 40 mg IV NOW ONE Stop: 12/09/24 20:28 Last Admin: 12/09/24 20:40 Dose: 40 mg Documented By: MORENITA Vital Signs Vital signs: Vital Signs - 8 hr 12/09/24 19:00 12/09/24 19:00 12/09/24 19:15 Pulse Rate 77 78 Respiratory Rate Blood Pressure 128/58 L Pulse Oximetry 97 95 Oxygen Delivery Method 12/09/24 19:15 12/09/24 19:30 12/09/24 19:30 Pulse Rate 71 Respiratory Rate 18 Blood Pressure 118/57 L 116/56 L Pulse Oximetry 96 Oxygen Delivery Method Room Air 12/09/24 19:45 12/09/24 19:45 12/09/24 20:00 Pulse Rate 70 67 Respiratory Rate Blood Pressure 96/49 L Pulse Oximetry 93 92 Oxygen Delivery Method 12/09/24 20:00 12/09/24 20:14 12/09/24 20:14 Pulse Rate 66 Respiratory Rate Blood Pressure 91/47 L 99/54 L Pulse Oximetry 92 Oxygen Delivery Method 12/09/24 20:15 12/09/24 20:15 12/09/24 20:30 Pulse Rate 65 Respiratory Rate Blood Pressure 94/51 L 97/53 L Pulse Oximetry 93 Oxygen Delivery Method 12/09/24 20:30 Pulse Rate 64 Respiratory Rate 14 Blood Pressure Pulse Oximetry 93 Oxygen Delivery Method Room Air MDM - Abdominal Pain <Austyn Sorto DO - Last Filed: 12/09/24 18:04> Differential Diagnosis Differential diagnosis: Likely abdominal pain, acute appendicitis, constipation, diverticulitis, gastroenteritis, pancreatitis, small bowel obstruction and other (Splenic artery aneurysm, SMA) Lab Data 12/09/24 13:40 12/09/24 13:40 Labs: Lab Results 12/09/24 12/09/24 12/09/24 Range/Units 13:40 14:32 18:25 WBC 16.1 H (4.5-11.0) X10^3/uL RBC 4.16 (4.0-5.2) X10^6/uL Hgb 12.7 (12.0-16.0) g/dL Hct 38.0 (36-46) % MCV 91.4 (80-100) fL MCH 30.5 (26-34) PG MCHC 33.4 (30-36) % RDW 13.9 (11.6-14.8) % Plt Count 255 (150-400) X10^3/uL Neut % (Auto) 85.9 H (50-75) % Lymph % (Auto) 7.5 L (25-40) % [place] % (Auto) 5.7 (3-14) % Eos % (Auto) 0.5 L (2-4) % Baso % (Auto) 0.4 (0-2) % Neut # (Auto) 23065 H (7770-9548) /uL Lymph # (Auto) 1200 (0211-5057) /uL [place] # (Auto) 900 (0-900) /uL Eos # (Auto) 100 (0-450) /uL Baso # (Auto) 100 (0-100) /uL Sodium 137 (137-145) mmol/L Potassium 4.5 (3.4-5.1) mmol/L Chloride 105 (98-107) mmol/L Carbon Dioxide 25 (22-32) mmol/L BUN 34 H (7-17) mg/dL Creatinine 1.09 H (0.52-1.04) mg/dL Estimated GFR 49 L (>60) mL/min BUN/Creatinine Ratio 31.2 H (6-22) Glucose 77 L (80-110) mg/dL Lactate 1.4 (0.7-2.1) mmol/L Calcium 9.6 (8.4-10.2) mg/dL Magnesium 1.6 (1.6-2.3) mg/dL Total Bilirubin 0.7 (0.2-1.3) mg/dL AST 35 (14-36) IU/L ALT 30 (<35) IU/L Alkaline Phosphatase 38 (38-126) U/L Total Creatine Kinase 85 (30-135) U/L Troponin I < 0.012 (0.01-0.034) ng/mL Total Protein 7.1 (6.3-8.2) g/dL Albumin 4.3 (3.5-5.0) g/dL Globulin 2.8 (1.7-4.1) g/dL Albumin/Globulin Ratio 1.5 (1.0-2.8) Lipase 185 (23-300) U/L Ur Bilirubin Confirm Negative (Negative) Urine RBC 0-1/hpf (0-5/HPF) Urine WBC 0-1/hpf (0-5/HPF) Ur Squamous Epith Cells 0-1 /hpf (0-5/HPF) Urine Bacteria Occasional (0-1) (None) Urine Mucus 1+ H (Negative) Ur Culture Indicated? Cult not indicated Vol Urine Centrifuged Low vol <10ml (spun) A Point of care testing: Urine Dip Bedside Urine Glucose Negative Bedside Urine Bilirubin + 1 Bedside Urine Ketone - Negative Urine Specific [place] 1.030 Bedside Urine Occult Blood - Negative Bedside Urine pH 6.0 Bedside Urine Protein - Negative Bedside Urine Urobilinogen - Negative Bedside Urine Nitrite - Negative Bedside Urine Leukocytes +/- 15 Esterase ECG Data Interpretation: EKG interpreted by ED physician sinus at 65 beats per minute QTC [address] changes no STEMI MDM Narrative Medical decision making narrative: 89-year-old female with a history of hypertension hyperlipidemia, splenic artery aneurysm repair, comes into the ED from home for evaluation of spontaneous abdominal pain diffuse in nature nothing making it better pressure making it worse, she describes as an ache, does endorse nausea but no vomiting no diarrhea. 1800: Patient is signed out to oncoming provider, patient pending CT angio as well as cardiac workup. 2 mg IV morphine and 4 mg IV Zofran ordered for symptomatic relief. <Jacob Martínez MD - Last Filed: 12/10/24 02:48> Lab Data Labs: Lab Results 12/09/24 12/09/24 12/09/24 Range/Units 13:40 14:32 18:25 WBC 16.1 H (4.5-11.0) X10^3/uL RBC 4.16 (4.0-5.2) X10^6/uL Hgb 12.7 (12.0-16.0) g/dL Hct 38.0 (36-46) % MCV 91.4 (80-100) fL MCH 30.5 (26-34) PG MCHC 33.4 (30-36) % RDW 13.9 (11.6-14.8) % Plt Count 255 (150-400) X10^3/uL Neut % (Auto) 85.9 H (50-75) % Lymph % (Auto) 7.5 L (25-40) % [place] % (Auto) 5.7 (3-14) % Eos % (Auto) 0.5 L (2-4) % Baso % (Auto) 0.4 (0-2) % Neut # (Auto) 55967 H (7539-9336) /uL Lymph # (Auto) 1200 (6975-9812) /uL [place] # (Auto) 900 (0-900) /uL Eos # (Auto) 100 (0-450) /uL Baso # (Auto) 100 (0-100) /uL Sodium 137 (137-145) mmol/L Potassium 4.5 (3.4-5.1) mmol/L Chloride 105 (98-107) mmol/L Carbon Dioxide 25 (22-32) mmol/L BUN 34 H (7-17) mg/dL Creatinine 1.09 H (0.52-1.04) mg/dL Estimated GFR 49 L (>60) mL/min BUN/Creatinine Ratio 31.2 H (6-22) Glucose 77 L (80-110) mg/dL Lactate 1.4 (0.7-2.1) mmol/L Calcium 9.6 (8.4-10.2) mg/dL Magnesium 1.6 (1.6-2.3) mg/dL Total Bilirubin 0.7 (0.2-1.3) mg/dL AST 35 (14-36) IU/L ALT 30 (<35) IU/L Alkaline Phosphatase 38 (38-126) U/L Total Creatine Kinase 85 (30-135) U/L Troponin I < 0.012 (0.01-0.034) ng/mL Total Protein 7.1 (6.3-8.2) g/dL Albumin 4.3 (3.5-5.0) g/dL Globulin 2.8 (1.7-4.1) g/dL Albumin/Globulin Ratio 1.5 (1.0-2.8) Lipase 185 (23-300) U/L Ur Bilirubin Confirm Negative (Negative) Urine RBC 0-1/hpf (0-5/HPF) Urine WBC 0-1/hpf (0-5/HPF) Ur Squamous Epith Cells 0-1 /hpf (0-5/HPF) Urine Bacteria Occasional (0-1) (None) Urine Mucus 1+ H (Negative) Ur Culture Indicated? Cult not indicated Vol Urine Centrifuged Low vol <10ml (spun) A Point of care testing: Urine Dip Bedside Urine Glucose Negative Bedside Urine Bilirubin + 1 Bedside Urine Ketone - Negative Urine Specific [place] 1.030 Bedside Urine Occult Blood - Negative Bedside Urine pH 6.0 Bedside Urine Protein - Negative Bedside Urine Urobilinogen - Negative Bedside Urine Nitrite - Negative Bedside Urine Leukocytes +/- 15 Esterase Imaging Data Chest x-ray: Radiologist's Impression: Close Chest X-Ray (Signed) Lisa Marcum - 12/09/24 Abdomen/Pelvis CTA (Signed) Lisa Marcum - 12/09/24 Launch?Image [address] [address] XRay Report Signed Patient: Emmanuelle Apodaca MR#: [id number] : 1935 Acct:[id number] Age/Sex: 89 / F Date of Service: 12/09/24 Loc: ED Accession Number: [id number] Procedure: XR chest 1V Ordering Provider: Austyn Sorto D.O. PROCEDURE: XR CHEST 1V INDICATIONS: Epigastric pain TECHNIQUE: One view of the chest was acquired. COMPARISON: [facility], , CHEST 1 VIEW, 01/06/2016, 11:33. FINDINGS: Surgical changes and devices: Coronary artery stent. Left upper quadrant surgical clips. Lungs and pleura: Lungs are clear. No pleural effusions or pneumothorax. Mediastinum: Mediastinal contours appear normal. Heart size is normal. Aortic arch is calcified indicating atherosclerosis. Bones and chest wall: No suspicious bony lesions. Overlying soft tissues appear unremarkable. IMPRESSION: No acute cardiopulmonary abnormality is seen. Approved by: Lisa Marcum M.D.,Ph.D. on 12/09/2024 at 19:51 CT angiogram abdomen and pelvis: Radiologist's Impression: [address] [address] [address] Scan Report Signed Patient: Emmanuelle Apodaca MR#: [id number] : 1935 Acct:[id number] Age/Sex: 89 / F Date of Service: 12/09/24 Loc: ED Accession Number: [id number] Procedure: CT angio abdomen pelvis Ordering Provider: Austyn Sorto D.O. PROCEDURE: CT ANGIO ABDOMEN PELVIS INDICATIONS: abd pain, hx of splenic anursym, TECHNIQUE: After the administration of intravenous contrast, 2.5 mm thick sections acquired from the diaphragm to the symphysis. 10 mm maximum-intensity projection (MIP) reformats were then acquired. For radiation dose reduction, the following was used: automated exposure control. COMPARISON: CT abdomen pelvis 01/16/2024. FINDINGS: Image Quality: Diagnostic. Abdominal aorta: No aortic aneurysm or evidence of acute aortic syndrome. Dense abdominal aortic calcified and noncalcified plaque. Mesenteric arteries: Patent without hemodynamically significant stenosis. Redemonstration of multiple calcified splenic aneurysms. Surgical clips are again seen medial to the aneurysm. Renal arteries: Patent without hemodynamically significant stenosis. Calcifications at the aortic origin of the renal arteries bilaterally. OTHER: Lower Chest: No significant findings. Liver: No solid mass. Gallbladder: No radiopaque gallstones or wall thickening. Biliary ducts: No biliary dilation. Pancreas: No ductal dilation. Spleen: Size is within normal limits. Calcified granulomas most consistent with history of prior granulomatous disease. Adrenal Glands: No adrenal nodules. Kidneys and Ureters: No hydronephrosis. No solid mass. No complex renal cystic lesion which requires follow up. Stomach and Bowel: Normal colonic caliber, without significant wall thickening. Colonic diverticulosis without acute inflammation. Peritoneum: No abnormal intraperitoneal fluid. No free air. Ventral Wall: No hernia. Abdominal Nodes: No retroperitoneal or mesenteric adenopathy by size criteria. Vessels: Aorta and inferior vena cava are normal in size. PELVIS: Pelvic Organs: Unremarkable. Bladder: Unremarkable. Pelvic Nodes: No enlarged lymph nodes. Miscellaneous: No inguinal hernias are seen. Bones: No aggressive osseous abnormality. Chronic T12 vertebral body compression deformity of the superior endplate. Multilevel degenerative changes of the visualized spine. IMPRESSION: No evidence of aortic aneurysm or evidence of acute aortic syndrome. Stable calcified splenic aneurysms. Colonic diverticulosis without CT evidence of acute diverticulitis. Approved by: Lisa Marcum M.D.,Ph.D. on 12/09/2024 at 19:50 ECG Data Attestation: I personally reviewed and interpreted this ECG as follows: MDM Narrative Medical decision making narrative: 89-year-old female with a history of hypertension hyperlipidemia, splenic artery aneurysm repair, comes into the ED from home for evaluation of spontaneous abdominal pain diffuse in nature nothing making it better pressure making it worse, she describes as an ache, does endorse nausea but no vomiting no diarrhea. 1800: Patient is signed out to oncoming provider, patient pending CT angio as well as cardiac workup. 2 mg IV morphine and 4 mg IV Zofran ordered for symptomatic relief. 12/09/24, 1800, Mauricio. Sign-out from Dr. Sorto. 89-year-old female with history of remote splenic artery aneurysm and repair, as left-sided abdominal pain without recent trauma, tenderness on examination, white blood cell count [id number], urinalysis negative, lipase negative, EKG and troponin negative, CT angiogram abdomen and pelvis pending. IV morphine was given not tolerated, IV Dilaudid to be given. IV fluid was given. Await results of CT angiogram for disposition plan. Assumed care. CT angiogram abdomen and pelvis. Impressions: ?No evidence of aortic aneurysm or evidence of acute aortic syndrome. Stable calcified splenic aneurysms. Colonic diverticulosis without CT evidence of acute diverticulitis.? See radiology report. Printed copy report given to patient/family with discussion of results. Patient still with left sided abdominal pain after Dilaudid and morphine, feels like she cannot go home, patient/family requesting admission. PCP Dr. Pruett was in the department earlier for possible admission but CT angiogram results were still pending at that time. Will query hospitalist regarding admission request for abdominal pain. 2030, case discussed with hospitalist Dr. Murillo who accepts patient for admission to observation Critical Care Time <Jacob Martínez MD - Last Filed: 12/10/24 02:48> Critical Care Time Critical Care Time: Yes Total Critical Care Time: 35 Attestation: The high probability of a clinically significant, sudden or life threatening deterioration of the [gastrointestinal, abdominopelvic] system(s) required my full and direct attention, intervention and personal management. The aggregate critical care time was [35] minutes. This time is in addition to time spent performing reported procedures but includes the following: [x] Data Review and interpretation [x] Patient assessment and monitoring of vital signs [x] Documentation [x] Medication orders and management Discharge Plan Departure Patient Disposition: Admitted as Observation Clinical Impression: Abdominal pain Admit Date/Time: 12/09/24 20:32 Admit Provider: Jc Murillo
--- NOTE | 2024-12-09 17:36 | DI.CT.S_ITS ---
PROCEDURE: CT ANGIO ABDOMEN PELVIS INDICATIONS: abd pain, hx of splenic anursym, TECHNIQUE: After the administration of intravenous contrast, 2.5 mm thick sections acquired from the diaphragm to the symphysis. 10 mm maximum-intensity projection (MIP) reformats were then acquired. For radiation dose reduction, the following was used: automated exposure control. COMPARISON: CT abdomen pelvis 01/16/2024. FINDINGS: Image Quality: Diagnostic. Abdominal aorta: No aortic aneurysm or evidence of acute aortic syndrome. Dense abdominal aortic calcified and noncalcified plaque. Mesenteric arteries: Patent without hemodynamically significant stenosis. Redemonstration of multiple calcified splenic aneurysms. Surgical clips are again seen medial to the aneurysm. Renal arteries: Patent without hemodynamically significant stenosis. Calcifications at the aortic origin of the renal arteries bilaterally. OTHER: Lower Chest: No significant findings. Liver: No solid mass. Gallbladder: No radiopaque gallstones or wall thickening. Biliary ducts: No biliary dilation. Pancreas: No ductal dilation. Spleen: Size is within normal limits. Calcified granulomas most consistent with history of prior granulomatous disease. Adrenal Glands: No adrenal nodules. Kidneys and Ureters: No hydronephrosis. No solid mass. No complex renal cystic lesion which requires follow up. Stomach and Bowel: Normal colonic caliber, without significant wall thickening. Colonic diverticulosis without acute inflammation. Peritoneum: No abnormal intraperitoneal fluid. No free air. Ventral Wall: No hernia. Abdominal Nodes: No retroperitoneal or mesenteric adenopathy by size criteria. Vessels: Aorta and inferior vena cava are normal in size. PELVIS: Pelvic Organs: Unremarkable. Bladder: Unremarkable. Pelvic Nodes: No enlarged lymph nodes. Miscellaneous: No inguinal hernias are seen. Bones: No aggressive osseous abnormality. Chronic T12 vertebral body compression deformity of the superior endplate. Multilevel degenerative changes of the visualized spine. IMPRESSION: No evidence of aortic aneurysm or evidence of acute aortic syndrome. Stable calcified splenic aneurysms. Colonic diverticulosis without CT evidence of acute diverticulitis. Approved by: Lisa Marcum M.D.,Ph.D. on 12/09/2024 at 19:50
--- NOTE | 2024-12-09 17:42 | DI.RAD.S_ITS ---
PROCEDURE: XR CHEST 1V INDICATIONS: Epigastric pain TECHNIQUE: One view of the chest was acquired. COMPARISON: [facility], , CHEST 1 VIEW, 01/06/2016, 11:33. FINDINGS: Surgical changes and devices: Coronary artery stent. Left upper quadrant surgical clips. Lungs and pleura: Lungs are clear. No pleural effusions or pneumothorax. Mediastinum: Mediastinal contours appear normal. Heart size is normal. Aortic arch is calcified indicating atherosclerosis. Bones and chest wall: No suspicious bony lesions. Overlying soft tissues appear unremarkable. IMPRESSION: No acute cardiopulmonary abnormality is seen. Approved by: Lisa Marcum M.D.,Ph.D. on 12/09/2024 at 19:51
[2024-12-09] MEDS: ONDANSETRON 4 MG/2 ML INJ IV (17:45)
[2024-12-09] MEDS: MORPHINE 4 MG/ML INJ 2 MG IV (17:45)
[2024-12-09] MEDS: SODIUM CHLORIDE 0.9% 1,000 ML 1000 ML IV ×2 (17:45→20:41)
[2024-12-09 18:48] LABS: Creatine Kinase 85 U/L (30-135); Lactate (Lactic Acid) 1.4 mmol/L (0.7-2.1); Magnesium 1.6 mg/dL (1.6-2.3)
[2024-12-09 19:00] LABS: Troponin I < 0.012 ng/mL (0.01-0.034)
[2024-12-09] MEDS: HYDROMORPHONE 0.5 MG INJ IV (19:33)
[2024-12-09] MEDS: PANTOPRAZOLE 40 MG VIAL IV (20:40)
[2024-12-09] MEDS: LACTATED RINGERS 1,000 ML 100 ML IV (21:40)
[2024-12-09] MEDS: HEPARIN 5,000 UNIT/ML VIAL 5000 UNIT SUBCUT (22:47)
[2024-12-09] MEDS: ATORVASTATIN 20 MG TABLET 40 MG PO (22:48)
[2024-12-10] VITALS (7 sets, daily range): BP systolic 102–124; BP diastolic 46–73; PULSE 63–68; RESP 16–20; TEMP 36.4–37.3; O2SAT 93–99
--- NOTE | 2024-12-10 00:55 | PM.HP.1 ---
History of Present Illness History of Present Illness Chief complaint: ABD pain from ribcage down Narrative: 89-year-old female with past medical history of hypertension, hyperlipidemia, CVA, coronary disease, splenic artery aneurysm repair, hysterectomy and depression presents with abdominal pain. Per the patient's report, around 8 AM this morning, the patient started to have acute onset of abdominal pain. The patient described her pain as left upper and epigastric area. The patient admitted to have some nausea but denies any vomiting or GI bleed. The patient states that she did have an initial or shortly after but eating does not make the pain worse. The patient described her pain as sharp, nonradiating and severe. Otherwise the patient denies any fever, chills, nausea, diarrhea, chest pain, shortness of breath or syncope. In our emergency room, the patient was hemodynamically stable. WBC was 16 but otherwise labs were normal including lipase. CT scan with contrast of the abdomen shows no acute pathology other than diverticulosis. UA and chest xray negative. Due to unclear source of pain or ER requested to admit the patient to observation for IV pain medication with IV fluid and monitor for any sign of infection. [facility] Medical History (Updated 12/09/24 @ 20:29 by Jacob Martínez MD) Chronic low back pain Depression, major, recurrent Chronic diastolic heart failure Cerebrovascular disease Gait instability Venous (peripheral) insufficiency Diplopia Osteopenia Do not resuscitate Benign paroxysmal vertigo, bilateral Peripheral neuropathy Osteoporosis (~2014) Left carotid artery occlusion (~2007) Essential hypertension Mixed hyperlipidemia Coronary artery disease Stroke (~2007) Hearing loss Cataracts, bilateral Colon polyps Radial fracture Fracture of ulnar styloid Surgical History Anesthesia History of surgery on wrist (~03/27/16) History of cardiac catheterization (~04/19/10) History of heart attack (~05/08/09) History of coronary artery stent placement (~01/20/09) History of shoulder surgery (~02/25/07) History of ankle surgery (~10/09/00) Aneurysm, splenic artery (~1991) History of colonoscopy (~1990) Aneurysm of carotid artery (~12/06/85) History of hysterectomy (~1965) History of dilatation and curettage History of neck surgery (~1961) History of left breast biopsy (~1959) Family History Father History of heart disease Mother Cancer Grandfather History of heart disease Grandmother History of heart disease Grandfather Colon cancer Grandmother Stroke Social History details: 2020 (George), grown children, retired household members: none Smoking Status: Never smoker Meds Home Medications and Allergies Home Medications Medication Instructions Recorded Confirmed Type amlodipine 5 mg tablet 5 mg PO DAILY #90 tabs 12/18/21 12/09/24 Rx isosorbide mononitrate 60 mg 60 mg PO DAILY #90 tabs 12/18/21 12/09/24 Rx tablet,extended release 24 hr lisinopril 10 mg tablet 10 mg PO DAILY #90 tabs 12/18/21 12/09/24 Rx metoprolol succinate 50 mg 50 mg PO DAILY #90 tabs 12/18/21 12/09/24 Rx tablet,extended release 24 hr atorvastatin 40 mg tablet 40 mg PO QPM #90 tabs 06/06/22 12/09/24 Rx spironolactone 25 mg tablet 25 mg PO DAILY 10/16/23 12/09/24 History aspirin 81 mg capsule 81 mg PO DAILY 11/16/24 12/09/24 History sertraline 50 mg tablet 50 mg PO DAILY #90 tabs 11/16/24 12/09/24 Rx Allergies Allergy/AdvReac Type Severity Reaction Status Date / Time Penicillins [PENICILLINS] Allergy Severe Rash Verified 11/16/24 10:16 mirtazapine AdvReac Intermediate nightmares Verified 11/16/24 10:16 Review of Systems Review of Systems ROS: Yes All systems reviewed with the patient and are negative except as otherwise documented Exam Vital Signs (past 8 hours): - 12/09/24 17:00 12/09/24 17:30 12/09/24 17:44 Temperature Pulse Rate 66 68 67 Respiratory Rate Blood Pressure 130/60 Pulse Oximetry 95 97 96 Oxygen Delivery Method Oxygen Flow Rate 12/09/24 17:44 12/09/24 18:08 12/09/24 18:09 Temperature Pulse Rate 86 Respiratory Rate Blood Pressure 127/58 L Pulse Oximetry 96 96 Oxygen Delivery Method Oxygen Flow Rate 12/09/24 18:09 12/09/24 18:30 12/09/24 18:45 Temperature Pulse Rate 73 Respiratory Rate Blood Pressure 133/73 136/68 Pulse Oximetry 97 Oxygen Delivery Method Oxygen Flow Rate 12/09/24 18:45 12/09/24 19:00 12/09/24 19:00 Temperature Pulse Rate 66 77 Respiratory Rate Blood Pressure 128/58 L Pulse Oximetry 96 97 Oxygen Delivery Method Oxygen Flow Rate 12/09/24 19:15 12/09/24 19:15 12/09/24 19:30 Temperature Pulse Rate 78 Respiratory Rate Blood Pressure 118/57 L 116/56 L Pulse Oximetry 95 Oxygen Delivery Method Oxygen Flow Rate 12/09/24 19:30 12/09/24 19:45 12/09/24 19:45 Temperature Pulse Rate 71 70 Respiratory Rate 18 Blood Pressure 96/49 L Pulse Oximetry 96 93 Oxygen Delivery Method Room Air Oxygen Flow Rate 12/09/24 20:00 12/09/24 20:00 12/09/24 20:14 Temperature Pulse Rate 67 66 Respiratory Rate Blood Pressure 91/47 L Pulse Oximetry 92 92 Oxygen Delivery Method Oxygen Flow Rate 12/09/24 20:14 12/09/24 20:15 12/09/24 20:15 Temperature Pulse Rate 65 Respiratory Rate Blood Pressure 99/54 L 94/51 L Pulse Oximetry 93 Oxygen Delivery Method Oxygen Flow Rate 12/09/24 20:30 12/09/24 20:30 12/09/24 21:00 Temperature 98.3 F Pulse Rate 64 63 Respiratory Rate 14 21 Blood Pressure 97/53 L 120/61 Pulse Oximetry 93 93 Oxygen Delivery Method Room Air Oxygen Flow Rate 0 Oxygen Delivery Method Room Air Oxygen Flow Rate 0 Narrative Exam Narrative: Physical Exam: GENERAL: The patient is not in any acute distressed. Awake and alert. HEENT: Nonicteric sclerae, PERRLA, EOMI. Oropharynx clear. Moist mucous membranes. Conjunctivae appear well perfused. HEART: Regular rate and rhythm without murmurs. No lower extremities edema. LUNGS: Clear to auscultation bilaterally. No wheezing, crackles or rhonchi ABDOMEN: Soft, positive bowel sounds, nontender. SKIN: No rash, no excessive bruising, petechiae, or purpura. NEUROLOGIC: AxO x 3. Cranial nerves II-XII intact without motor/sensory deficit. Objective Labs 12/09/24 13:40 12/09/24 13:40 Labs: Laboratory Results - last 24 hr 12/09/24 12/09/24 12/09/24 13:40 14:32 18:25 WBC 16.1 H RBC 4.16 Hgb 12.7 Hct 38.0 MCV 91.4 MCH 30.5 MCHC 33.4 RDW 13.9 Plt Count 255 Neut % (Auto) 85.9 H Lymph % (Auto) 7.5 L [place] % (Auto) 5.7 Eos % (Auto) 0.5 L Baso % (Auto) 0.4 Neut # (Auto) 55243 H Lymph # (Auto) 1200 [place] # (Auto) 900 Eos # (Auto) 100 Baso # (Auto) 100 Sodium 137 Potassium 4.5 Chloride 105 Carbon Dioxide 25 BUN 34 H Creatinine 1.09 H Estimated GFR 49 L BUN/Creatinine Ratio 31.2 H Glucose 77 L Lactate 1.4 Calcium 9.6 Magnesium 1.6 Total Bilirubin 0.7 AST 35 ALT 30 Alkaline Phosphatase 38 Total Creatine Kinase 85 Troponin I < 0.012 Total Protein 7.1 Albumin 4.3 Globulin 2.8 Albumin/Globulin Ratio 1.5 Lipase 185 Ur Bilirubin Confirm Negative Urine RBC 0-1/hpf Urine WBC 0-1/hpf Ur Squamous Epith Cells 0-1 /hpf Urine Bacteria Occasional (0-1) Urine Mucus 1+ H Ur Culture Indicated? Cult not indicated Vol Urine Centrifuged Low vol <10ml (spun) A Assessment & Plan Assessment & Plan narrative: Abdominal pain. Admit the patient to medical observation. Pain is located in left upper quadrant and epigastric area. Lipase normal. LFTs and bilirubin normal. No sign of sepsis other than leukocytosis. CT abdomen with contrast shows no acute pathology to explain the pain. Will have patient NPO. IV fluid. Pain control with IV Dilaudid as needed and antiemetics. Monitor for any signs of infections Or sepsis. No lactic acid also was normal. Leukocytosis. Could be stress related. No clear sign of infection and patient is afebrile. UA negative. Chest x-ray negative. CT abdomen shows no acute finding to suggest infection. Monitor for now and repeat WBC in the morning. Hypertension. Monitor blood pressure and resume home medication accordingly. Hyperlipidemia. Resume home statin. Coronary disease. Patient denies any chest pain. EKG and tropes are negative. Resume home cardiac medication. Depression. Resume home antidepressant. DVT prophylaxis heparin subcu. CODE STATUS DNR/DNI. Disposition likely home in 1 to 2 days Time-Based Coding :: [TOTAL MINUTES] spent with patient and on the chart (including review of chart, obtaining history, exam, reviewing outside data, placing orders, documenting exam and treatment plan, and counseling patient) on [DATE]. Quality VTE Deep Vein Thrombosis/Pulmonary Embolism Present on Admission: No
[2024-12-10] MEDS: DEXTROSE 5%-LACTATED RINGERS 1,000 ML 84 ML IV (01:06)
[2024-12-10 06:35] LABS: Add Manual Diff / Slide Review NO; Basophils Absolute Auto 100 /uL (0-100); Basophils Percent Auto 0.5 % (0-2); Eosinophils Absolute Auto 0 /uL (0-450); Hematocrit 30.9 % (36-46); Hemoglobin 10.3 g/dL (12.0-16.0); Lymphocytes Absolute Auto 800 /uL (1100-4500); Lymphocytes Percent Auto 4.6 % (25-40); Mean Corpuscular HGB Conc 33.3 % (30-36); Mean Corpuscular Hemoglobin 30.7 PG (26-34); Mean Corpuscular Volume 92.3 fL (80-100); Monocytes Absolute Auto 900 /uL (0-900); Monocytes Percent Auto 5.7 % (3-14); Neutrophils Absolute Auto 14600 /uL (1500-7000); Neutrophils Percent Auto 89.2 % (50-75); Platelet Count 177 X10^3/uL (150-400); Red Blood Cell Count 3.35 X10^6/uL (4.0-5.2); Red Cell Distribution Width 14.1 % (11.6-14.8); White Blood Cell Count 16.3 X10^3/uL (4.5-11.0)
[2024-12-10 06:55] LABS: Alanine Aminotransferase 29 IU/L (<35); Albumin 3.2 g/dL (3.5-5.0); Albumin Globulin Ratio 1.3 (1.0-2.8); Alkaline Phosphatase 33 U/L (38-126); Aspartate Aminotransferase 28 IU/L (14-36); BUN Creatinine Ratio 31.1 (6-22); Bilirubin Total 0.9 mg/dL (0.2-1.3); Blood Urea Nitrogen 28 mg/dL (7-17); Calcium 8.6 mg/dL (8.4-10.2); Carbon Dioxide 25 mmol/L (22-32); Chloride 107 mmol/L (98-107); Estimated Glomerular Filt Rate > 60 mL/min (>60); Globulin 2.4 g/dL (1.7-4.1); Glucose 109 mg/dL (80-110); HEMOLYSIS < 15 (0-50); Potassium 4.2 mmol/L (3.4-5.1); Sodium 137 mmol/L (137-145); Total Protein 5.6 g/dL (6.3-8.2)
[2024-12-10] MEDS: HEPARIN 5,000 UNIT/ML VIAL 5000 UNIT SUBCUT ×2 (08:53→20:53)
--- NOTE | 2024-12-10 09:20 | PT.IIE ---
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, splenic artery (~1991) History of ankle surgery (~10/09/00) History of cardiac catheterization (~04/19/10) History of colonoscopy (~1990) History of coronary artery stent placement (~01/20/09) History of dilatation and curettage History of heart attack (~05/08/09) History of hysterectomy (~1965) History of left breast biopsy (~1959) History of neck surgery (~1961) History of shoulder surgery (~02/25/07) History of surgery on wrist (~03/27/16) Medical History (Last Updated 05/05/24 @ 10:34 by Manjit Pruett MD) Benign paroxysmal vertigo, bilateral Cataracts, bilateral Cerebrovascular disease Chronic diastolic heart failure Chronic low back pain Colon polyps Coronary artery disease Depression, major, recurrent Diplopia Do not resuscitate Essential hypertension Fracture of ulnar styloid Gait instability Hearing loss Left carotid artery occlusion (~2007) Mixed hyperlipidemia Osteopenia Osteoporosis (~2014) Peripheral neuropathy Radial fracture Stroke (~2007) Venous (peripheral) insufficiency Physical Therapy Inpatient Evaluation/Re-Eval M1 PT/OT-IP Prior Functional Status Start: 12/10/24 11:44 Freq: NEEDED Status: Active Protocol: Document 12/10/24 09:20 AB (Rec: 12/10/24 12:05 AB [id number]) Medical Review Prior Functional Status Medical History Reviewed Yes Communication able to make needs known Mobility and Gait pt stated that she was modified independent with all mobilities and ambulation without AD indoors but tends to furniture cruise or occasionally uses a 4WW. uses hiking pole for outdoor mobility Social History Household Members none Living Arrangements House Number of Floors (Floors) One Floor Number of Stairs To Enter/Railing? ramp to enter Home Environment High Toilet,Tub/Shower Home Equipment Front Wheel Walker,Four Wheel Walker,Hand Held Shower,Grab Bars In Shower Additional Social History Comment pt has hiking pole Daughter lives a few miles away from pt and can assist pt if needed M2 PT-IP Current Condition Start: 12/10/24 11:44 Freq: NEEDED Status: Active Protocol: Document 12/10/24 09:20 AB (Rec: 12/10/24 12:05 AB [id number]) Physical Therapy Current Condition Current Condition Evaluation Date 12/10/24 Treatment Diagnosis abdominal pain; difficulty in walking Onset Date 12/09/24 M3 PT-IP Subjective Start: 12/10/24 11:44 Freq: NEEDED Status: Active Protocol: Document 12/10/24 09:20 AB (Rec: 12/10/24 12:05 AB [id number]) Subjective Physical Therapy Visit Type Type Initial Evaluation Visit Start Time 09:20 Visit Stop Time 09:45 Number of RIB SAWYER Visits 0 Physical Therapy Visit Comments Patient Comments agreeable to do PT Therapy Pain Assessment Location Left Abdomen Intensity 3 Scale Used Numeric (0 - 10) Pain Management Techniques Distraction,Modification of Treatment,Re-positioning M4 PT-IP Mobility and Gait Start: 12/10/24 11:44 Freq: NEEDED Status: Active Protocol: Document 12/10/24 09:20 AB (Rec: 12/10/24 12:05 [id number]) PT-Bed Mobility Assessment Supine to Sit Supine to Sit Independent Sit to Supine Sit to Supine Independent PT-Transfer Assessment Sit to and From Stand Sit to and from Stand Standby Assistance Equipment Transfer Assistive Device None,Gait Belt,Front Wheeled Walker Orthotic/Prosthetic Devices or Brace: No Transfer Ability Level of Assist Contact Guard Assistance, Minimal Assistance Comments Mobility Comments pt in bed and daughter in room . obtained PLOF and home set up. BP: 121/72 pt completed supine to sit independent. sit to stand SBA and ambulated ~ 20 ft in room using FWW CGA. Assessed ambulation without AD and completed ~ 20 ft min A and cues. presents with unsteady antalgic shuffling gait. pt sat on EOB. informed pt regarding use of FWW at this time and agreed. sit to supine mod I. positioned pt in bed. call light and table placed within reach. Gait Assessment Gait Gait Assistance Required: Contact Guard Assist,Minimum Assistance Distance (Feet) 20 Able to Maintain Weight Bearing Status Yes During Gait Assistive Devices Assistive Device None,Gait Belt,Front Wheeled Walker Orthotic/Prosthetic Devices or Brace: No Gait Deviations General Gait Pattern Antalgic,Decreased Stride Length,Decreased Feet Clearance Factors Limiting Gait Function Factors Limiting Gait Function Decreased Activity Tolerance, Decreased Strength,Limited Range of Motion,Pain,Poor Balance,Poor Safety Awareness PT-Balance Assessment Sitting Balance and Reactions Static Sitting Balance Ability Normal Dynamic Sitting Balance Ability Good Standing Balance and Reactions Static Standing Balance Ability Fair Dynamic Standing Balance Ability Fair Device Used FWW M5 PT-IP Objective Assessments Start: 12/10/24 11:44 Freq: NEEDED Status: Active Protocol: Document 12/10/24 09:20 AB (Rec: 12/10/24 12:05 AB [id number]) Orientation Orientation/Cognition Level of Alertness Alert Orientation Name,Place,Situation Language Function Ability Hard of Hearing Safety Awareness Decreased Safety Awareness Memory Description No Deficits Noted Gross Range of Motion Lower Extremity ROM Assessment Within Functional Limits Strength Lower Extremity Strength Assessment Within Functional Limits Sensation Assessment Sensation Gross Sensation Right LE Impaired,Left LE Impaired Sensation Description Numbness Comments Sensation Comments B feet numbness Muscle Tone Muscle Tone WNL Yes M6 PT-IP Treatment Start: 12/10/24 11:44 Freq: NEEDED Status: Active Protocol: Document 12/10/24 09:20 AB (Rec: 12/10/24 12:05 AB [id number]) Physical Therapy Treatment Education Education Provided Safety M7 PT-IP Assessment and Plan Start: 12/10/24 11:44 Freq: NEEDED Status: Active Protocol: Document 12/10/24 09:20 AB (Rec: 12/10/24 12:05 AB [id number]) PT Summary Assessment and Plan Potential Rehabilitation Potential Fair Status of Condition at Evaluation Evolving Summary Impairments Pain,Balance,Coordination, Sensation,Cognition,Bed Mobility,Transfers,Gait, Activity Tolerance Assessment Summary pt is an 89 y/o F who is admitted for abdominal pain. pt is mod I for bed mobility and CGA for transfers and ambulation using FWW. Assess ambulation without AD but requiring min A and presents with unsteady shuffling gait. Recommending use of FWW at this time. will continue to assess progress. Goals Transfer Goal Independent,Front Wheeled Walker,Four Wheeled Walker Gait Goal Independent,Front Wheel Walker ,Four Wheel Walker Gait Distance 200 Other Goals improve transfers and ambulation without AD ~ 100 ft mod I Days to Meet Goals 10 Frequency of Treatment Frequency Of Treatment Once a Day Treatment Plan Physical Therapy Treatment Plan Bed Mobility Training,Transfer Training,Gait Training, Therapeutic Exercise,Balance Retraining,Post Op Education, Discharge Planning,Hot or Cold Pack,Neuromuscular Re-ed, Coordination Retraining,Manual Therapy Recommendations To Nursing Amount of Assist Needed 1 Person Assist Discharge Recommendations PT Discharge Recommendations Home with Assistance,Home Health,Outpatient PT Transportation Needs at Discharge Private Vehicle
[2024-12-10] MEDS: lisinopriL 10 MG TABLET PO (10:06)
[2024-12-10] MEDS: ISOSORBIDE MONONITRATE ER 30 MG TABLET 60 MG PO (10:06)
[2024-12-10] MEDS: ASPIRIN EC 81 MG TABLET PO (10:06)
[2024-12-10] MEDS: METOPROLOL ER 50 MG TABLET PO (10:06)
[2024-12-10] MEDS: SPIRONOLACTONE 25 MG TABLET PO (10:07)
[2024-12-10] MEDS: AMLODIPINE 5 MG TABLET PO (10:07)
[2024-12-10] MEDS: SERTRALINE 50 MG TABLET PO (10:29)
--- NOTE | 2024-12-10 11:17 | OT.IP.EVAL ---
Past Medical History (Last Updated 05/05/24 @ 10:34 by Manjit Pruett MD) Benign paroxysmal vertigo, bilateral Cataracts, bilateral Cerebrovascular disease Chronic diastolic heart failure Chronic low back pain Colon polyps Coronary artery disease Depression, major, recurrent Diplopia Do not resuscitate Essential hypertension Fracture of ulnar styloid Gait instability Hearing loss Left carotid artery occlusion (~2007) Mixed hyperlipidemia Osteopenia Osteoporosis (~2014) Peripheral neuropathy Radial fracture Stroke (~2007) Venous (peripheral) insufficiency Surgical History (Last Reviewed 05/05/24 @ 00:40 by Manjit Pruett MD) Anesthesia 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, splenic artery (~1991) History of ankle surgery (~10/09/00) History of cardiac catheterization (~04/19/10) History of colonoscopy (~1990) History of coronary artery stent placement (~01/20/09) History of dilatation and curettage History of heart attack (~05/08/09) History of hysterectomy (~1965) History of left breast biopsy (~1959) History of neck surgery (~1961) History of shoulder surgery (~02/25/07) History of surgery on wrist (~03/27/16) Occupational Therapy Inpatient Evaluation/Re-Eval M1 PT/OT-IP Prior Functional Status Start: 12/10/24 11:44 Freq: NEEDED Status: Active Protocol: Document 12/10/24 12:07 [facility] (Rec: 12/10/24 12:23 [facility] [id number]) Medical Review Prior Functional Status Medical History Reviewed Yes Communication able to make needs known Mobility and Gait pt stated that she was modified independent with all mobilities and ambulation without AD indoors but tends to furniture cruise or occasionally uses a 4WW. uses hiking pole for outdoor mobility Activities of Daily Living and IADL's Pt states did all her ADL needs and IADl needs . Social History Household Members none Living Arrangements House Number of Floors (Floors) One Floor Number of Stairs To Enter/Railing? ramp to enter Home Environment High Toilet,Tub/Shower Home Equipment Front Wheel Walker,Four Wheel Walker,Hand Held Shower,Grab Bars In Shower Additional Social History Comment pt has hiking pole Daughter lives a few miles away from pt and stay with pt if needed M2 OT-IP Current Condition Start: 12/10/24 12:06 Freq: Status: Active Protocol: Document 12/10/24 12:07 [facility] (Rec: 12/10/24 12:23 [facility] [id number]) Occupational Therapy Current Condition Current Condition Evaluation Date 12/10/24 Treatment Diagnosis Abdominal pain Diagnosis Onset Date 12/09/24 M3 OT- IP Subjective and Pain Start: 12/10/24 12:06 Freq: Status: Active Protocol: Document 12/10/24 12:07 [facility] (Rec: 12/10/24 12:23 [facility] [id number]) OT- Subjective Occupational Therapy Visit Type Type Initial Evaluation Visit Start Time 10:20 Visit Stop Time 11:17 Occupational Therapy Visit Comments Patient Comments Pt agreed to do OT eval. Patient/Caregiver Goals To go home. OT Pain Assessment Pain When Pain Assessed During Mobility Pain Present Pain Present Pain Reported Location Left Abdomen Intensity 3 M4 OT- IP ADL's Start: 12/10/24 12:06 Freq: Status: Active Protocol: Document 12/10/24 12:07 [facility] (Rec: 12/10/24 12:23 [facility] [id number]) OT [id number] Comments OT Self-Feeding Comments NPO at this time. OT ADL-Grooming General Evaluation Grooming Ability Independent OT ADL-Oral Care General Eval Oral Care Ability Independent OT ADL-Dressing General Eval Lower Body Dressing Ability Standby Assistance Comments OT Dressing Comments Pt able to jessica/doff her socks . OT ADL-Toileting Comments OT Toileting Comments Pt states did earlier. OT ADL-Bathing Comments OT Bathing Comments Pt will benefit from a shower chair. M5 OT- IP IADL's Start: 12/10/24 12:06 Freq: Status: Active Protocol: Document 12/10/24 12:07 [facility] (Rec: 12/10/24 12:23 [facility] [id number]) OT-Instrumental Activities of Daily Living Home Safety Awareness Awareness of Need for Assistance at Home Good Awareness Ability to Problem Solve Emergency Able to Problem Solve Situations Medication Management Medication Management Comments Pt would benefit from supervision. Money Management Money Management Comments Pt will benefit from assist. Meal Preparation Meal Preparation Comments Pt will benefit from assist. Grill Cook Grill Cook Comments Pt will benefit from assist. Driving Driving Concerns Identified Regarding Safety M6 OT- IP Functional Cognition Start: 12/10/24 12:06 Freq: Status: Active Protocol: Document 12/10/24 12:07 [facility] (Rec: 12/10/24 12:23 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 Pt not able to subtract 100-23 , able to states 14 animals in one minute, able to recall 2/ 5 objects after time passed, and not able to draw the hours hands correctly on the clock after time given. Cognitive Comments Cognitive Assessment Comments Pt scored 184 seconds on [place] Making Part B which implies severe deficits for speed of processing, task switching, mental flexibility, executive functioning, and visual attention. Pt is well aware not to drive at this time. Pt is also on pain meds for her abdominal pain which may be affecting her mentation. OT- Vision and Hearing OT- Hearing Assessment OT- Hearing Assessment WFL OT- Vision Assessment Visual Acuity Glasses All The Time Visual Attentiveness WFL Occular Pursuits Impaired Horizontal Vision Assessment Comments Per pt since her CVA 8 years also that her eyes do not scan together but that she has been able to compensate with her glasses to be able to see well . M7 OT- IP Mobility and Balance Start: 12/10/24 12:06 Freq: Status: Active Protocol: Document 12/10/24 12:07 [facility] (Rec: 12/10/24 12:23 [facility] [id number]) OT-Transfer Assessment Sit to and From Stand Sit to and from Stand Standby Assistance,Contact Guard Assistance Transfers Transfer Ability Contact Guard Assistance Technique Transfer Destination Chair Transfer Technique Stand Step Pivot Devices Transfer Assistive Devices Gait Belt,Front Wheeled Walker Comments Mobility Comments CGA to SBA to stand pending on height of surfaces. CLose SBA to occasional CGA with the FWW. Noted pt slight sway in her walking to the left. OT- Balance Assessment Sitting Balance and Reactions Static Sitting Balance Ability Normal Dynamic Sitting Balance Ability Good Standing Balance and Reactions Static Standing Balance Ability Good Dynamic Standing Balance Ability Fair M8 OT- IP Objective Assessments Start: 12/10/24 12:06 Freq: Status: Active Protocol: Document 12/10/24 12:07 [facility] (Rec: 12/10/24 12:23 [facility] [id number]) OT Gross Range of Motion Upper Extremity Range of Motion Assessment Within Functional Limits OT Strength Upper Extremity Strength Assessment Within Functional Limits OT- Coordination Assessment Upper Extremity Finger to Nose Test Within Functional Limits M9 OT- IP Assessment and Plan Start: 12/10/24 12:06 Freq: Status: Active Protocol: Document 12/10/24 12:07 [facility] (Rec: 12/10/24 12:23 [facility] [id number]) OT Summary Assessment and Plan Potential Rehabilitation Potential Good Analytic Complexity at Evaluation Low Summary OT Impairments Pain,Balance,Functional Cognition,Functional Mobility, Dressing,Toileting,Bathing, Toilet Transfers,Shower Transfers Progress Towards Goals Slow Progress due to Pain,Slow Progress due to Medical Issues Assessment Summary Pt LOw complexity and main barriers are pain, unstaedy on her feet and needing use of FWW at this time, and having difficulty with her STM and problem solving. When medically stable, pt would benefit from 24/7 assist and outpt PT for dynamic balance needs. Goals Dressing Goal Independent Toileting Goal Independent Bathing Goal Independent Toilet Transfer Goal Independent Shower Transfer Goal Independent Days to Meet Goals 10 Frequency of Treatment Other frequency 5x/week Treatment Plan OT Treatment Plan ADL Training,Functional Cognition Training,Functional Mobility,Patient/Family Education,Discharge Planning Other Treatment Recommendations and Next shower Treatment Focus Discharge Recommendations OT Discharge Recommendations Home with 24/7 Assist Available,Outpatient PT Home Equipment Needs shower chair Transportation Needs at Discharge Private Vehicle
--- NOTE | 2024-12-10 12:09 | PM.PN.1 ---
Subjective Subjective Interval history: 89F admitted with abrupt onset of left sided abdominal pain starting yesterday. Pain is sharp, mildly improved with pain medications. She has not had a bowel movement in a couple of days. She denies diarrhea, fever, chills, nausea, vomiting, melena or hematemesis. She had elevated WBC but CT scan was unremarkable. Admitted for observation. Exam Vital Signs (past 8 hours): - 12/10/24 08:00 12/10/24 10:06 12/10/24 10:06 Temperature 97.6 F Pulse Rate 63 63 Respiratory Rate 20 Blood Pressure 124/70 124/70 124/73 Pulse Oximetry 93 Oxygen Flow Rate 0 Oxygen Delivery Method Room Air Oxygen Flow Rate 0 Narrative Exam Narrative: Gen: WDWN no acute distress Pulm: CTA b/l CV: RRR no m/r/g Abd: S, tender LLQ and LUQ mild firmness of what feels like colon, non distended Objective Labs 12/10/24 06:16 12/10/24 06:16 Labs: Laboratory Results - last 24 hr 12/09/24 12/09/24 12/09/24 13:40 14:32 18:25 WBC 16.1 H RBC 4.16 Hgb 12.7 Hct 38.0 MCV 91.4 MCH 30.5 MCHC 33.4 RDW 13.9 Plt Count 255 Neut % (Auto) 85.9 H Lymph % (Auto) 7.5 L [place] % (Auto) 5.7 Eos % (Auto) 0.5 L Baso % (Auto) 0.4 Neut # (Auto) 35955 H Lymph # (Auto) 1200 [place] # (Auto) 900 Eos # (Auto) 100 Baso # (Auto) 100 Sodium 137 Potassium 4.5 Chloride 105 Carbon Dioxide 25 BUN 34 H Creatinine 1.09 H Estimated GFR 49 L BUN/Creatinine Ratio 31.2 H Glucose 77 L Lactate 1.4 Calcium 9.6 Magnesium 1.6 Total Bilirubin 0.7 AST 35 ALT 30 Alkaline Phosphatase 38 Total Creatine Kinase 85 Troponin I < 0.012 Total Protein 7.1 Albumin 4.3 Globulin 2.8 Albumin/Globulin Ratio 1.5 Lipase 185 Ur Bilirubin Confirm Negative Urine RBC 0-1/hpf Urine WBC 0-1/hpf Ur Squamous Epith Cells 0-1 /hpf Urine Bacteria Occasional (0-1) Urine Mucus 1+ H Ur Culture Indicated? Cult not indicated Vol Urine Centrifuged Low vol <10ml (spun) A 12/10/24 06:16 WBC 16.3 H RBC 3.35 L Hgb 10.3 L Hct 30.9 L MCV 92.3 MCH 30.7 MCHC 33.3 RDW 14.1 Plt Count 177 Neut % (Auto) 89.2 H Lymph % (Auto) 4.6 L [place] % (Auto) 5.7 Eos % (Auto) 0.0 L Baso % (Auto) 0.5 Neut # (Auto) 26536 H Lymph # (Auto) 800 L [place] # (Auto) 900 Eos # (Auto) 0 Baso # (Auto) 100 Sodium 137 Potassium 4.2 Chloride 107 Carbon Dioxide 25 BUN 28 H Creatinine 0.90 Estimated GFR > 60 BUN/Creatinine Ratio 31.1 H Glucose 109 Lactate Calcium 8.6 Magnesium Total Bilirubin 0.9 AST 28 ALT 29 Alkaline Phosphatase 33 L Total Creatine Kinase Troponin I Total Protein 5.6 L Albumin 3.2 L Globulin 2.4 Albumin/Globulin Ratio 1.3 Lipase Ur Bilirubin Confirm Urine RBC Urine WBC Ur Squamous Epith Cells Urine Bacteria Urine Mucus Ur Culture Indicated? Vol Urine Centrifuged [facility] Medical History (Updated 12/09/24 @ 20:29 by Jacob Martínez MD) Chronic low back pain Depression, major, recurrent Chronic diastolic heart failure Cerebrovascular disease Gait instability Venous (peripheral) insufficiency Diplopia Osteopenia Do not resuscitate Benign paroxysmal vertigo, bilateral Peripheral neuropathy Osteoporosis (~2014) Left carotid artery occlusion (~2007) Essential hypertension Mixed hyperlipidemia Coronary artery disease Stroke (~2007) Hearing loss Cataracts, bilateral Colon polyps Radial fracture Fracture of ulnar styloid Surgical History Anesthesia History of surgery on wrist (~03/27/16) History of cardiac catheterization (~04/19/10) History of heart attack (~05/08/09) History of coronary artery stent placement (~01/20/09) History of shoulder surgery (~02/25/07) History of ankle surgery (~10/09/00) Aneurysm, splenic artery (~1991) History of colonoscopy (~1990) Aneurysm of carotid artery (~12/06/85) History of hysterectomy (~1965) History of dilatation and curettage History of neck surgery (~1961) History of left breast biopsy (~1960) Family History Father History of heart disease Mother Cancer Grandfather History of heart disease Grandmother History of heart disease Grandfather Colon cancer Grandmother Stroke Social History details: 2019 (George), grown children, retired household members: none Smoking Status: Never smoker Assessment & Plan Assessment & Plan narrative: 1. L sided Abdominal pain - - differential includes constipation, early diverticulitis despite negative CT but with leukocytosis. Less likely ischemic. - will start laxitive therapies - given leukocytosis and colonic tenderness on exam, start antibiotics for possible early diverticulitis. Hypertension. - home medications of lisinopril, metoprolol, and amlodipine have been resumed. BP normal today. Will continue these today. Hyperlipidemia. Continue home statin. Coronary disease. Patient denies any chest pain. EKG and troponin are negative. Resumed home cardiac medication and will continue today. Depression. Continue home antidepressant. DVT prophylaxis: HSQ CODE STATUS DNR/DNI. Dispo: likely home, possibly later today or tomorrow depending on response to above therapies. Time-Based Coding :: [TOTAL MINUTES] spent with patient and on the chart (including review of chart, obtaining history, exam, reviewing outside data, placing orders, documenting exam and treatment plan, and counseling patient) on [DATE]. Quality VTE Deep Vein Thrombosis/Pulmonary Embolism Present on Admission: No
[2024-12-10] MEDS: CIPROFLOXACIN 250 MG TABLET 500 MG PO ×2 (13:12→20:53)
[2024-12-10] MEDS: metroNIDAZOLE 500 MG TABLET PO ×3 (13:13→20:53)
--- NOTE | 2024-12-10 14:42 | CM.DANOTE ---
DCP Assessment Note: Pt is a 89yo female, resident of [place], is admitted for abdominal pain and leukocytosis. Pt lives in a house alone. Pt's Primary Care Provider is Dr. Manjit Pruett and insurance is Medicare and [facility]. Reviewed chart and discussed with multidisciplinary team pt's medical status and initial discharge needs. DCP met w/patient at bedside; introduced self and role. Patient was found in bed, alert and oriented, cooperative with assessment. Pt confirmed living situation and good support in daughter who lives locally. Pt expressed preference in discharge home when pain managed. Pt has no prior hx of SNF or home health. Plan: Anticipating dc home with daughter to transport when medically cleared or in 1-2 days (per Provider Notes). CM team will follow closely for coordination of discharge plans. Cristin Syed [facility] Discharge Planning/Care Management CM Discharge Assessment Start: 12/10/24 14:39 Freq: Status: Active Protocol: Document 12/10/24 14:39 MW (Rec: 12/10/24 14:41 MW [id number]) Discharge Planning Assessment Assigned Electric Organ Checker GUNNAR Amaral/Assigned Designee Name Boogie Mansfield Contact Information [phone] Advance Directives? No History Provided By Patient,Family Member,Medical Record Prior Living Arrangements House Household Members none Type of transporation used prior to Drives own vehicle admit Independent with ADL's Yes Is patient alert and oriented? Yes DME Already Rented / Owned FWW / Walker,Cane Barriers to Discharge No Discharge Plan Home Transportation Arrangement Jeanne Hyman Review Status In Process Please Provide Date Initial DC 12/10/24 Assessment Was Performed Next Review Type Continued Stay Review
[2024-12-10] MEDS: ATORVASTATIN 20 MG TABLET 40 MG PO (16:27)
--- NOTE | 2024-12-10 17:32 | PC.NURSE ---
Pt had relatively uneventful day. HL intact/patent. Denies discomfort Tolerating gen diet, Call light w/in reach, bed alarm on for pt safety. COntinue w/plan of care
[2024-12-10] MEDS: HYDROCODONE/ACET 5/325 TABLET 1 TAB PO (20:53)
[2024-12-10] MEDS: SENNOSIDES 8.6 MG TABLET 17.2 MG PO (20:53)
[2024-12-11] VITALS (7 sets, daily range): BP systolic 94–114; BP diastolic 50–78; PULSE 62–78; RESP 15–16; TEMP 36.3–36.9; O2SAT 91–98
[2024-12-11 05:52] LABS: Add Manual Diff / Slide Review NO; Basophils Absolute Auto 0 /uL (0-100); Basophils Percent Auto 0.2 % (0-2); Eosinophils Absolute Auto 100 /uL (0-450); Eosinophils Percent Auto 0.8 % (2-4); Hematocrit 31.5 % (36-46); Hemoglobin 10.6 g/dL (12.0-16.0); Lymphocytes Absolute Auto 700 /uL (1100-4500); Lymphocytes Percent Auto 5.9 % (25-40); Mean Corpuscular HGB Conc 33.8 % (30-36); Mean Corpuscular Volume 91.8 fL (80-100); Monocytes Absolute Auto 1000 /uL (0-900); Monocytes Percent Auto 8.6 % (3-14); Neutrophils Absolute Auto 10300 /uL (1500-7000); Neutrophils Percent Auto 84.5 % (50-75); Platelet Count 156 X10^3/uL (150-400); Red Blood Cell Count 3.43 X10^6/uL (4.0-5.2); White Blood Cell Count 12.1 X10^3/uL (4.5-11.0)
[2024-12-11 06:21] LABS: Blood Urea Nitrogen 25 mg/dL (7-17); Calcium 8.6 mg/dL (8.4-10.2); Carbon Dioxide 25 mmol/L (22-32); Chloride 106 mmol/L (98-107); Estimated Glomerular Filt Rate 54 mL/min (>60); Glucose 77 mg/dL (80-110); HEMOLYSIS < 15 (0-50); Magnesium 1.7 mg/dL (1.6-2.3); Potassium 4.2 mmol/L (3.4-5.1); Sodium 135 mmol/L (137-145)
[2024-12-11] MEDS: ASPIRIN EC 81 MG TABLET PO (09:10)
[2024-12-11] MEDS: METOPROLOL ER 50 MG TABLET PO (09:10)
[2024-12-11] MEDS: SPIRONOLACTONE 25 MG TABLET PO (09:11)
[2024-12-11] MEDS: ISOSORBIDE MONONITRATE ER 30 MG TABLET 60 MG PO (09:11)
[2024-12-11] MEDS: lisinopriL 10 MG TABLET PO (09:12)
[2024-12-11] MEDS: SERTRALINE 50 MG TABLET PO (09:12)
[2024-12-11] MEDS: AMLODIPINE 5 MG TABLET PO (09:12)
--- NOTE | 2024-12-11 09:15 | PT.IPTN ---
Physical Therapy Treatment Note M2 PT-IP Current Condition Start: 12/10/24 11:44 Freq: NEEDED Status: Discharge Protocol: Document 12/10/24 09:20 AB (Rec: 12/10/24 12:05 AB [id number]) Physical Therapy Current Condition Current Condition Evaluation Date 12/10/24 Treatment Diagnosis abdominal pain; difficulty in walking Onset Date 12/09/24 M3 PT-IP Subjective Start: 12/10/24 11:44 Freq: NEEDED Status: Discharge Protocol: Document 12/11/24 09:15 AB (Rec: 12/11/24 12:56 AB [id number]) Subjective Physical Therapy Visit Type Type Treatment Note Visit Start Time 09:15 Visit Stop Time 09:30 Number of MOISTURE CONDITIONER OPERATOR Visits 0 Therapy Pain Assessment Pain When Pain Assessed At Rest Pain Present Pain Present Pain Reported Location Left Abdomen Intensity 2 Scale Used Numeric (0 - 10) Pain Management Techniques Distraction,Modification of Treatment,Re-positioning M4 PT-IP Mobility and Gait Start: 12/10/24 11:44 Freq: NEEDED Status: Discharge Protocol: Document 12/11/24 09:15 AB (Rec: 12/11/24 12:56 AB [id number]) PT-Bed Mobility Assessment Supine to Sit Supine to Sit Independent Sit to Supine Sit to Supine Independent PT-Transfer Assessment Sit to and From Stand Sit to and from Stand Standby Assistance,1 Person Assistance,Use of Upper Extremities Equipment Transfer Assistive Device Gait Belt,Front Wheeled Walker Orthotic/Prosthetic Devices or Brace: No Transfer Ability Level of Assist Standby Assistance Comments Mobility Comments pt in bed and stated that she is going home today. pt agreed to do PT. completed supine to sit mod I. sit to stand sBA and ambulated using 4WW SBA ~ 100 ft. pt ambulated back to the room. got back to bed mod I. call light and table placed within reach. Gait Assessment Gait Gait Assistance Required: Standby Assistance Distance (Feet) 100 Able to Maintain Weight Bearing Status Yes During Gait Assistive Devices Assistive Device Gait Belt,Front Wheeled Walker Gait Deviations General Gait Pattern Decreased Stride Length, Decreased Feet Clearance,Step- to Gait Factors Limiting Gait Function Factors Limiting Gait Function Decreased Activity Tolerance, Decreased Strength,Pain,Poor Balance,Poor Safety Awareness M5 PT-IP Objective Assessments Start: 12/10/24 11:44 Freq: NEEDED Status: Discharge Protocol: Document 12/10/24 09:20 AB (Rec: 12/10/24 12:05 AB [id number]) Orientation Orientation/Cognition Level of Alertness Alert Orientation Name,Place,Situation Language Function Ability Hard of Hearing Safety Awareness Decreased Safety Awareness Memory Description No Deficits Noted Gross Range of Motion Lower Extremity ROM Assessment Within Functional Limits Strength Lower Extremity Strength Assessment Within Functional Limits Sensation Assessment Sensation Gross Sensation Right LE Impaired,Left LE Impaired Sensation Description Numbness Comments Sensation Comments B feet numbness Muscle Tone Muscle Tone WNL Yes M6 PT-IP Treatment Start: 12/10/24 11:44 Freq: NEEDED Status: Discharge Protocol: Document 12/11/24 09:15 AB (Rec: 12/11/24 12:56 AB [id number]) Physical Therapy Treatment Education Education Provided Safety M7 PT-IP Assessment and Plan Start: 12/10/24 11:44 Freq: NEEDED Status: Discharge Protocol: Document 12/11/24 09:15 AB (Rec: 12/11/24 12:56 AB [id number]) PT Summary Assessment and Plan Potential Rehabilitation Potential Fair Summary Impairments Pain,ROM,Strength,Balance, Coordination,Sensation,Tone, Cognition,Bed Mobility, Transfers,Gait,Activity Tolerance Progress Towards Goals Progressing Toward Goals Assessment Summary pt improving well with mobility and able to ambulate using 4WW SBA ~ 100 ft. pt plans to go home later today. Goals Transfer Goal Independent,Front Wheeled Walker,Four Wheeled Walker Gait Goal Independent,Front Wheel Walker ,Four Wheel Walker Gait Distance 200 Other Goals improve transfers and ambulation without AD ~ 100 ft mod I Days to Meet Goals 10 Frequency of Treatment Frequency Of Treatment Once a Day Treatment Plan Physical Therapy Treatment Plan Bed Mobility Training,Transfer Training,Gait Training, Therapeutic Exercise,Balance Retraining,Post Op Education, Discharge Planning,Hot or Cold Pack,Neuromuscular Re-ed, Coordination Retraining,Manual Therapy Recommendations To Nursing Amount of Assist Needed 1 Person Assist Discharge Recommendations PT Discharge Recommendations Home with Assistance Transportation Needs at Discharge Private Vehicle
[2024-12-11] MEDS: CIPROFLOXACIN 250 MG TABLET 500 MG PO (09:24)
[2024-12-11] MEDS: polyethylene glycoL 3350 17 GM POWD.PACK PO (09:37)
--- NOTE | 2024-12-11 09:43 | PM.PN.1 ---
Subjective Subjective Interval history: 89-year-old female with HTN, HLD, CVA, CAD, splenic artery aneurysm repair, hysterectomy and depression presents with abdominal pain and nausea. Pain was described as epigastric and L sided. No BM x 2 days. Sudden onset w/associated nausea. Hgb down 2 gm from admit. BUN was elevated on admit. CT showed diverticulosis w/o diverticulitis. Patient reports that she is feeling better this morning. States she still has pain in her lower abdomen. She has not passed a bowel movement yet. She states overall she is improved compared with 2 days ago. Exam Vital Signs (past 8 hours): - 12/10/24 16:00 12/10/24 20:00 Temperature 99.1 F Pulse Rate 68 Respiratory Rate 20 17 Blood Pressure 102/46 L Pulse Oximetry 99 Oxygen Delivery Method Room Air Oxygen Flow Rate 0 Narrative Exam Narrative: GEN: Alert and oriented x 3, NAD HEENT:NC, Face symmetric CHEST: Respiratory excursions symmetric, CTAB CV: RRR, no M/R/G ABD: Soft, ND, BT present in all 4 quadrants, no organomegaly or masses, she does guard with palpation of her left lower quadrant, suprapubic area and less so the right lower quadrant EXTR: warm, well perfused, no C/C/E SKIN: warm and dry, no rash NEURO: Alert and oriented x 3, nonfocal Objective Labs 12/11/24 05:40 12/11/24 05:40 Labs: Laboratory Results - last 24 hr 12/10/24 06:16 WBC 16.3 H RBC 3.35 L Hgb 10.3 L Hct 30.9 L MCV 92.3 MCH 30.7 MCHC 33.3 RDW 14.1 Plt Count 177 Neut % (Auto) 89.2 H Lymph % (Auto) 4.6 L Valley % (Auto) 5.7 Eos % (Auto) 0.0 L Baso % (Auto) 0.5 Neut # (Auto) 57901 H Lymph # (Auto) 800 L Valley # (Auto) 900 Eos # (Auto) 0 Baso # (Auto) 100 Sodium 137 Potassium 4.2 Chloride 107 Carbon Dioxide 25 BUN 28 H Creatinine 0.90 Estimated GFR > 60 BUN/Creatinine Ratio 31.1 H Glucose 109 Calcium 8.6 Total Bilirubin 0.9 AST 28 ALT 29 Alkaline Phosphatase 33 L Total Protein 5.6 L Albumin 3.2 L Globulin 2.4 Albumin/Globulin Ratio 1.3 [facility] Medical History (Updated 12/09/24 @ 20:29 by Jacob Martínez MD) Chronic low back pain Depression, major, recurrent Chronic diastolic heart failure Cerebrovascular disease Gait instability Venous (peripheral) insufficiency Diplopia Osteopenia Do not resuscitate Benign paroxysmal vertigo, bilateral Peripheral neuropathy Osteoporosis (~2014) Left carotid artery occlusion (~2007) Essential hypertension Mixed hyperlipidemia Coronary artery disease Stroke (~2007) Hearing loss Cataracts, bilateral Colon polyps Radial fracture Fracture of ulnar styloid Surgical History Anesthesia History of surgery on wrist (~03/27/16) History of cardiac catheterization (~04/19/10) History of heart attack (~05/08/09) History of coronary artery stent placement (~01/20/09) History of shoulder surgery (~02/25/07) History of ankle surgery (~10/09/00) Aneurysm, splenic artery (~1991) History of colonoscopy (~1990) Aneurysm of carotid artery (~12/06/85) History of hysterectomy (~1965) History of dilatation and curettage History of neck surgery (~1961) History of left breast biopsy (~1959) Family History Father History of heart disease Mother Cancer Grandfather History of heart disease Grandmother History of heart disease Grandfather Colon cancer Grandmother Stroke Social History details: 2019 (George), grown children, retired household members: none Smoking Status: Never smoker Assessment & Plan Assessment & Plan narrative: 1. Abdominal pain Possible diverticulitis. She does have significant diverticulosis on her CT scan. She did have a change in bowel habits, leukocytosis, and abdominal pain. The abdominal pain is improving as his leukocytosis. Continue Cipro and Flagyl. Continue bowel regimen. If she is able to maintain hydration orally through the morning, anticipate discharge home later today. 2. Leukocytosis Improving. 3. Anemia Stable. Suspect this was hemodilutional. 4. HTN . Well controlled 5. CAD Asymptomatic Code status Full Prophy On heparin Dispo Likely home later today Time-Based Coding :: [TOTAL MINUTES] spent with patient and on the chart (including review of chart, obtaining history, exam, reviewing outside data, placing orders, documenting exam and treatment plan, and counseling patient) on [DATE]. Quality VTE Deep Vein Thrombosis/Pulmonary Embolism Present on Admission: No
[2024-12-11] MEDS: metroNIDAZOLE 500 MG TABLET PO (09:44)
--- NOTE | 2024-12-11 11:25 | CM.DPC ---
DCP Discharge Home Per MD, pt tolerating general diet and improving and if able to get adequate water intake and void independently around lunchtime then pt should be stable for d/c home today with outpt f/u and no identified barriers to discharge. GUNNAR Cunningham
--- NOTE | 2024-12-11 12:44 | PC.NURSE ---
Pt w/ no c/o discomfort Tolerating po w/o incidence. Orders received for D/C SL D/C intact. Home instructions given w/understanding, Pt escorted via W/C by staff to waiting vehicle D/C in stable status.
--- NOTE | 2024-12-24 10:59 | PC.NURSE ---
LATE ENTRY On 12/10/24 this pt IVF of D5LR was stopped at 1058, per MD orders.
--- NOTE | 2024-12-31 12:22 | PC.NURSE ---
Late entry for 12/09/24: Bolus started in ED, stopped in AC unit at 21:28.
== END 2024-12-11 12:47 | disposition home or self-care (01) ==
LOC: ED 20:29 → AC 20:33
PROVIDERS: Internal Medicine; Student in an Organized Health Care Education/Training Program; Admitting Provider Internal Medicine; Emergency Provider Emergency Medicine; Family Provider Internal Medicine; PCP Internal Medicine; Visit Provider Internal Medicine
DX: R10.9 Unspecified abdominal pain (principal); R11.0 Nausea; I10 Essential (primary) hypertension; E78.5 Hyperlipidemia, unspecified; I25.10 Atherosclerotic heart disease of native coronary artery without angina pectoris; F32.A Depression, unspecified; Z66 Do not resuscitate; D64.9 Anemia, unspecified; D72.829 Elevated white blood cell count, unspecified
CPT/HCPCS: 36415; 71045; 74174; 80048; 80053; 81003; 81015; 82550; 83605; 83690; 83735; 84484; 85025; 93005; 93010; 96361; 96374; 96375; 97116; 97129; 97130; 97161; 97165; 97530; 99284; 99291; G0378; J1171; J1644; J2270; J2405; J2470; J7121; Q9967

== ENCOUNTER → 2024-12-21 10:15 | Outpatient (CLI) | payer MEDICARE, OTHER, SELFPAY ==
[2024-12-09 21:05] VITALS: BMI 21.7
[2024-12-21 11:01] LABS: Add Manual Diff / Slide Review NO; Basophils Absolute Auto 100 /uL (0-100); Basophils Percent Auto 0.8 % (0-2); Eosinophils Absolute Auto 100 /uL (0-450); Eosinophils Percent Auto 1.5 % (2-4); Hematocrit 35.2 % (36-46); Lymphocytes Absolute Auto 1000 /uL (1100-4500); Lymphocytes Percent Auto 10.2 % (25-40); Mean Corpuscular Volume 91.1 fL (80-100); Monocytes Absolute Auto 800 /uL (0-900); Monocytes Percent Auto 7.9 % (3-14); Neutrophils Absolute Auto 7700 /uL (1500-7000); Neutrophils Percent Auto 79.6 % (50-75); Platelet Count 340 X10^3/uL (150-400); Red Blood Cell Count 3.86 X10^6/uL (4.0-5.2); Red Cell Distribution Width 14.4 % (11.6-14.8); White Blood Cell Count 9.6 X10^3/uL (4.5-11.0)
[2024-12-21 11:17] LABS: Alanine Aminotransferase 29 IU/L (<35); Albumin 3.8 g/dL (3.5-5.0); Albumin Globulin Ratio 1.7 (1.0-2.8); Alkaline Phosphatase 42 U/L (38-126); Aspartate Aminotransferase 28 IU/L (14-36); BUN Creatinine Ratio 21.1 (6-22); Bilirubin Total 0.4 mg/dL (0.2-1.3); Blood Urea Nitrogen 19 mg/dL (7-17); Calcium 9.1 mg/dL (8.4-10.2); Carbon Dioxide 27 mmol/L (22-32); Chloride 103 mmol/L (98-107); Estimated Glomerular Filt Rate > 60 mL/min (>60); Globulin 2.3 g/dL (1.7-4.1); Glucose 95 mg/dL (80-110); HEMOLYSIS < 15 (0-50); Potassium 4.7 mmol/L (3.4-5.1); Sodium 138 mmol/L (137-145); Total Protein 6.1 g/dL (6.3-8.2)
== END ==
PROVIDERS: Family Provider Internal Medicine; PCP Internal Medicine; Referring Provider Internal Medicine; Visit Provider Internal Medicine
DX: R19.7 Diarrhea, unspecified (principal); K57.92 Diverticulitis of intestine, part unspecified, without perforation or abscess without bleeding
CPT/HCPCS: 36415; 80053; 85025

== ENCOUNTER → 2024-12-22 12:22 | Outpatient (CLI) | payer MEDICARE, OTHER, SELFPAY ==
[2024-12-09 21:05] VITALS: BMI 21.7
[2024-12-24 16:13] LABS: C difficie Toxins A and B, EIA Negative (Negative)
--- NOTE | 2024-12-30 06:57 | PC.NURSE ---
Late entry for 12/09/24: PT admitted to unit with NS bolus running. Infusion stopped at 21:56
== END ==
PROVIDERS: Family Provider Internal Medicine; PCP Internal Medicine; Referring Provider Internal Medicine; Visit Provider Internal Medicine
DX: K57.92 Diverticulitis of intestine, part unspecified, without perforation or abscess without bleeding (principal); R19.7 Diarrhea, unspecified
CPT/HCPCS: 87324

== ENCOUNTER → 2025-05-27 07:54 | Outpatient (CLI) | payer MEDICARE, OTHER, SELFPAY ==
[2024-12-09 21:05] VITALS: BMI 21.7
--- NOTE | 2025-05-27 07:55 | DI.MG.S_ITS ---
MM screening mammo BI: 05/27/2025. BI-RADS: 2 CLINICAL: 89-year old female for bilateral screening mammogram. No Tyrer-Cuzick risk score calculation due to patient's age being over 85 years old. No personal or first-degree family history of breast cancer. The patient had a prior left breast biopsy. PRIOR EXAMS 05/26/2024, 05/23/2023, 05/13/2022, 05/08/2021. MAMMOGRAPHY TECHNIQUE: 2D and 3D (tomosynthesis) digital mammographic views obtained, with additional images as needed for full coverage. Current study was also evaluated with a Computer Aided Detection (CAD) system. DENSITY C. The breasts are heterogeneously dense, which may obscure small masses. MAMMOGRAPHY FINDINGS Right: Benign-appearing calcification noted on the right. There are no suspicious masses, calcifications, or other findings in the breast. Left: Benign-appearing calcification and post-surgical changes noted on the left. There are no suspicious masses, calcifications, or other findings in the breast. IMPRESSION: * No evidence of malignancy with benign findings. RECOMMENDATIONS Bilateral * Annual screening mammography. OVERALL ASSESSMENT CATEGORY BI-RADS-2: Benign. The [employer] recommends annual screening mammography beginning at age 40 for women with average risk of breast cancer. ELECTRONICALLY SIGNED: Ne Joe M.D. on 05/27/2025 at 08:44:23 AM PT Interpreting Station ID: [id number]
== END ==
LOC: MAMMO 07:54
PROVIDERS: Family Provider Internal Medicine; PCP Internal Medicine; Referring Provider Internal Medicine; Visit Provider Internal Medicine
DX: Z12.31 Encounter for screening mammogram for malignant neoplasm of breast (principal); R92.333 Mammographic heterogeneous density, bilateral breasts; R92.1 Mammographic calcification found on diagnostic imaging of breast
CPT/HCPCS: 77063; 77067

== ENCOUNTER 2025-08-15 07:30 | Outpatient (RCR) | payer MEDICARE, OTHER, SELFPAY ==
[2024-12-09 21:05] VITALS: BMI 21.7
--- NOTE | 2025-08-04 13:00 | PT.OIE ---
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) Diplopia (08/04/25) Benign paroxysmal vertigo, bilateral (08/04/25) Unsteadiness on feet (08/04/25) Past Medical History (Last Reviewed 07/11/25 @ 11:53 by Manjit Pruett MD) Benign paroxysmal vertigo, bilateral Cataracts, bilateral Cerebrovascular disease Chronic diastolic heart failure Chronic low back pain Colon polyps Coronary artery disease Depression, major, recurrent Diplopia Do not resuscitate Essential hypertension Fracture of ulnar styloid Gait instability Hearing loss Left carotid artery occlusion (~2007) Mixed hyperlipidemia Osteopenia Osteoporosis (~2014) Peripheral neuropathy Radial fracture Stroke (~2007) Venous (peripheral) insufficiency Past Surgical History (Last Reviewed 07/11/25 @ 11:53 by Manjit Pruett MD) Anesthesia 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, splenic artery (~1991) History of ankle surgery (~10/09/00) History of cardiac catheterization (~04/19/10) History of colonoscopy (~1990) History of coronary artery stent placement (~01/20/09) History of dilatation and curettage History of heart attack (~05/08/09) History of hysterectomy (~1965) History of left breast biopsy (~1959) History of neck surgery (~1961) History of shoulder surgery (~02/25/07) History of surgery on wrist (~03/27/16) Visit Care Team Role Provider Type Manjit Pruett MD Attending Provider Physician Family Provider Primary Care Provider Referring Provider Specialty: Internal Medicine Address: [address] [place] [address], [facility] Email: [email or web address] Physical Therapy Initial Evaluation PT OP: Balance, Vestibular, Neuro Start: 08/04/25 16:06 Freq: Status: Active Protocol: Document 08/04/25 12:15 DCW (Rec: 08/04/25 16:16 DCW [id number]) Out-Patient Physical Therapy Visit Information Visit Information Visit Type Initial Evaluation Visit Start Time 12:15 Visit Stop Time 13:00 Visit Number 1 Number of YARD TRUCK DRIVER Visits 0 Progress Note Due 09/03/25 Evaluation Information Evaluation Date 08/04/25 Current Condition History of Current Condition Current Complaints Unsteadiness, fear of falling, difficulty with gait History of Current Pt is an 89 year old female presenting with complaints Condition of poor balance, difficulty with gait, fear of falling, and instability. Pt uses a SPC when out in the community. Reports that she suffered damage to her left inner ear in the 1959's, and has not had use of her hearing or vestibular system on that side ever since, in addition had an injury to her eye, which left her with double vision, on top of severe neuropathy, all of which make it difficult to balance. Reports she participated in an [employer] class earlier this year, which seemed to help some, but pt admits she does not do much on her own, so she has noticed a decline since the class ended. OP-PT Subjective Patient Comments Patient Comments I do get a little woozy when I get up. Herrmann Balance Assessment Evaluation Sitting to Standing Independent w/out Hands Ability Unsupported Stance Safely- 2 minutes Sitting Unsupported, Safely- 2 minutes Feet on Floor Standing to Sitting Safely, Minimal Hand Use Ability Transfer Ability Safely, Minimal Hand Use Unsupported Stance- Supervision, 10 seconds Eyes Closed Unsupported Stance- Independent, <30 seconds Eyes Open Reaching Forward Confidently, 10 inches Standing Pick- Up Object From Independent/Safe Floor Look Behind Shoulder Supervision w/Turning - Standing Turning 360 Degrees Turns slowly, but safely Unsupported Stance, 2 Steps w/Minimum Assist Alternating Feet on Stair Unsupported Tandem Holds Tandem- 30 seconds Stance Unilateral Leg Lifts Leg/Unable to Hold Stance Total Score Herrmann Total Score ( 41 out of 56 points) Functional Tests Dynamic Gait Index (DGI) Score 16.24 Five Times Sit to Stand Test Score 12.43 Timed Up and Go (TUG) Score 13.37 /c SPC Comments Three-trial average (13.04, 13.39, 13.69) TUG Impairment 40 to <60% Impaired (Score 14-15) Rating Neuro Re-Education Treatment Balance Activities Tandem Details Tandem Stance SLS Details SLS Physical Therapy Assessment Impairments Impairments Activity Tolerance,Balance,Functional Activities, Functional Mobility,Soft Tissue Mobility,Strength,Tone, Vestibular Goals Two Impairment Pt does not have an appropriate home exercise program Halfway Goal (LTG) Pt to demonstrate ability to safely and correctly perform three home exercises in order to display independence with HEP. LTG Duration 11/02/25 One Impairment Pt presents as increased falls risk, per DGI (16/24) and Herrmann (41/56) Supervisor Airplane Flight Attendant Goal (LTG) Pt to improve Herrmann balance score by at least five points to 46/56 in order to demonstrate decreased risk of falls LTG Duration 11/02/25 Assessment Summary Assessment Pt presents with signs and symptoms consistent with referring diagnosis. Pt exhibits increased falls risk, per DGI (16/24) and Herrmann (41/56) scores. Pt has significant contributing factors, including severe unilateral vestibular loss, diplopia, and neuropathy. Pt will likely benefit from skilled therapeutic intervention focusing on static and dynamic balance challenges, functional mobility, increased activity tolerance, and strength. Physical Therapy Plan Frequency and Duration Frequency of 2x/Week Treatment Plan of Care Start 08/04/25 Date Plan of Care End 11/02/25 Date Therapeutic Interventions Therapeutic Balance Training,Canalithic Repositioning,Coordination Interventions Training,Home Exercise Program,Joint Mobilizations, Manual Therapy,Neuromuscular Re-education,Patient/ Caregiver Education,Self-Care/Home Management,Soft Tissue Mobilization,Therapeutic Activities,Therapeutic Exercises Next Visit Focus/Plan Next Note Type Treatment Note Next Visit Plan Dynamic/static balance challenges, functional mobility, activity tolerance
--- NOTE | 2025-08-11 12:12 | PT.OTN ---
Current Diagnoses Idiopathic progressive neuropathy (08/11/25) Diplopia (08/11/25) Benign paroxysmal vertigo, bilateral (08/11/25) Unsteadiness on feet (08/11/25) Physical Therapy Treatment Note PT OP: Balance, Vestibular, Neuro Start: 08/04/25 16:06 Freq: Status: Active Protocol: Document 08/11/25 11:30 DCW (Rec: 08/11/25 12:07 DCW [id number]) Out-Patient Physical Therapy Visit Information Visit Information Visit Type Treatment Note Visit Start Time 11:30 Visit Stop Time 12:10 Visit Number 2 Number of GUN SYNCHRONIZER Visits 0 Progress Note Due 09/03/25 Evaluation Information Evaluation Date 08/04/25 OP-PT Subjective Patient Comments Patient Comments Pt admits she is kind of off balance, but there's a lot going on right now. Notes she sold her house, has to be out in ten days, and is moving to [place]. Will be leaving 08/27, will plan to cancel all other appointments following her next visit. Neuro Re-Education Treatment Balance Activities Retro ambulation Details Retro Ambulation Equipment // bars Semi-tandem Details Semi-tandem Equipment // bars Foam Details Double leg stance Equipment // bars Comments EO/EC Tandem Details Tandem Stance Equipment // bars SLS Details SLS Equipment // bars Vestibular Rehabilitation X1 Viewing Details Static target with head turns Physical Therapy Assessment Goals Two Impairment Pt does not have an appropriate home exercise program Tuck Pointer Helper Goal (LTG) Pt to demonstrate ability to safely and correctly perform three home exercises in order to display independence with HEP. LTG Duration 11/02/25 One Impairment Pt presents as increased falls risk, per DGI (16/24) and Herrmann (41/56) Tuck Pointer Helper Goal (LTG) Pt to improve Herrmann balance score by at least five points to 46/56 in order to demonstrate decreased risk of falls LTG Duration 11/02/25 Assessment Summary Assessment Pt unexpectedly moving out of the state within the next few weeks, so todays visit was a focus on specific exercises she can perform at home. Will plan to review HEP next visit to ensure pt feels comfortable and independent, and will then likely discharge afterward. Physical Therapy Plan Frequency and Duration Frequency of 2x/Week Treatment Plan of Care Start 08/04/25 Date Plan of Care End 11/02/25 Date Therapeutic Interventions Therapeutic Balance Training,Canalithic Repositioning,Coordination Interventions Training,Home Exercise Program,Joint Mobilizations, Manual Therapy,Neuromuscular Re-education,Patient/ Caregiver Education,Self-Care/Home Management,Soft Tissue Mobilization,Therapeutic Activities,Therapeutic Exercises Next Visit Focus/Plan Next Note Type Treatment Note Next Visit Plan Dynamic/static balance challenges, functional mobility, activity tolerance
--- NOTE | 2025-08-15 08:16 | PT.OTN ---
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) Diplopia (08/15/25) Benign paroxysmal vertigo, bilateral (08/15/25) Unsteadiness on feet (08/15/25) Physical Therapy Treatment Note PT OP: Balance, Vestibular, Neuro Start: 08/04/25 16:06 Freq: Status: Active Protocol: Document 08/15/25 07:31 SP (Rec: 08/15/25 08:30 SP [id number]) Out-Patient Physical Therapy Visit Information Visit Information Visit Type Treatment Note Visit Start Time 07:33 Visit Stop Time 12:16 Visit Number 3 Number of STEAM BRUSH OPERATOR Visits 1 Progress Note Due 09/03/25 OP-PT Subjective Patient Comments Patient Comments Pt said Therapeutic Exercises Sitting Exercises Ota Past Class HEP Sitting Exercise Reviewed: LAQ, chair taps (progressed) Name Side bilateral Resistance 2# leg wt Reps/Minutes 30 alternating (LAQ), 10 reps (chair taps) Standing Exercises Ota Past Class HEP Standing Exercise REviewed: Chair taps, Hip ABD, Ext, HS curl, calf Name raises (20) Side bilateral Resistance 2# leg wt Reps/Minutes 30 alternating Neuro Re-Education Treatment Balance Activities Dynamic Stepping Details forward head turns, backward stepping Comments finger glide wall, cued keep feet apart. Tandem Details Tandem and Semi Tandem Stance- HEP reviewed Equipment // bars Reps/Duration 30 sec Comments [place] reviewed corner balance instruction- intermittent contact wall/ chair for support needed SLS Details SLS Equipment // bars Comments Ota reviewed corner balance instruction- intermittent contact wall/ chair for support needed Vestibular Rehabilitation X1 Viewing Details Static target with head turns Comments verbal review Self-Care/Home Management Treatment Education Patient Education Body Mechanics,Home Exercise Program,Posture,Safety Other Education Time spent: Ed for upright (shoulder blade engagement) midline trunk alignment with HO visual for taller posture, core and hip mm fac and how much gravity adds weight to the body and eventually cause imbalance and cause strain on the body and create more forward posture if not aware. Ed for need in the future use of AD 4WW longer distances to walk closer to walker for better posture. Importance continuing HEP for strengthen and balance. ALso provided a URL for DARRELL instructor online can follow. Physical Therapy Assessment Goals Two Impairment Pt does not have an appropriate home exercise program Data Processing Systems Consultant Goal (LTG) Pt to demonstrate ability to safely and correctly perform three home exercises in order to display independence with HEP. LTG Duration 11/02/25 One Impairment Pt presents as increased falls risk, per DGI (16/) and Herrmann (41/56) Data Processing Systems Consultant Goal (LTG) Pt to improve Herrmann balance score by at least five points to 46/56 in order to demonstrate decreased risk of falls LTG Duration 11/02/25 Assessment Summary Assessment Pt improved confidence with continued balance instruction positioned in a corner with chair in front for contact needed. Progressed weighted strengthening today with [place] Exercises with 2 lb leg weights, she attended this program in her past. Cues for tall posture over CHAU, contact wall/rail/chair for support needed with noted decreased UE support as reps progressed. Wrote updated reps/sets for progression. Ed for midline trunk alignment with HO visual for posture and how much gravity adds to the body, can cause strain on the body and create more forward posture if not aware. Ed for need in the future use of AD 4WW longer distances to walk closer to walker for better posture. Importance continuing HEP for strengthen and balance. Pt felt more confident how can progress on her own til can see PT in [place] after she moves. Physical Therapy Plan Frequency and Duration Frequency of 2x/Week Treatment Plan of Care Start 08/04/25 Date Plan of Care End 11/02/25 Date Therapeutic Interventions Therapeutic Balance Training,Canalithic Repositioning,Coordination Interventions Training,Home Exercise Program,Joint Mobilizations, Manual Therapy,Neuromuscular Re-education,Patient/ Caregiver Education,Self-Care/Home Management,Soft Tissue Mobilization,Therapeutic Activities,Therapeutic Exercises Discharge Physical Therapy Discharge Reasons Patient Request Discharge Comments Pt moving to [place]. Next Visit Focus/Plan Next Note Type Discharge Summary Next Visit Plan PT do complete DC
--- NOTE | 2025-08-15 09:40 | PT.OPDS ---
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) Diplopia (08/15/25) Benign paroxysmal vertigo, bilateral (08/15/25) Unsteadiness on feet (08/15/25) Visit Care Team Role Provider Type Manjit Pruett MD Attending Provider Physician Family Provider Primary Care Provider Referring Provider Specialty: Internal Medicine Address: [address] [place] [address] Email: [email or web address] Visit Number Visit Number 3 Discharge Summary PT OP: Balance, Vestibular, Neuro Start: 08/04/25 16:06 Freq: Status: Active Protocol: Document 08/15/25 09:38 DCW (Rec: 08/15/25 09:40 DCW [id number]) Out-Patient Physical Therapy Visit Information Visit Information Visit Type Discharge Summary Physical Therapy Assessment Goals Two Impairment Pt does not have an appropriate home exercise program Jail Goal (LTG) Pt to demonstrate ability to safely and correctly perform three home exercises in order to display independence with HEP. LTG Duration 11/02/25 One Impairment Pt presents as increased falls risk, per DGI (16/) and Herrmann (41/56) Shutdown Coordinator Goal (LTG) Pt to improve Herrmann balance score by at least five points to 46/56 in order to demonstrate decreased risk of falls LTG Duration 11/02/25 Assessment Summary Assessment Pt discharging from skilled therapy at this time secondary to moving from area. Pt has been provided with an HEP, plans to follow-up with PT at a local clinic following her move. Physical Therapy Plan Frequency and Duration Frequency of 2x/Week Treatment Plan of Care Start 08/04/25 Date Plan of Care End 11/02/25 Date Therapeutic Interventions Therapeutic Balance Training,Canalithic Repositioning,Coordination Interventions Training,Home Exercise Program,Joint Mobilizations, Manual Therapy,Neuromuscular Re-education,Patient/ Caregiver Education,Self-Care/Home Management,Soft Tissue Mobilization,Therapeutic Activities,Therapeutic Exercises Discharge Physical Therapy Discharge Reasons Patient Request Discharge Comments Pt moving out of state Next Visit Focus/Plan Next Note Type Discharge Summary
== END 2025-08-16 09:54 | disposition home or self-care (01) ==
LOC: PHYS 07:30
PROVIDERS: Family Provider Internal Medicine; PCP Internal Medicine; Referring Provider Internal Medicine; Visit Provider Internal Medicine
DX: R26.81 Unsteadiness on feet (principal); G60.3 Idiopathic progressive neuropathy; H81.13 Benign paroxysmal vertigo, bilateral; H53.2 Diplopia
CPT/HCPCS: 97110; 97112; 97163